=== PATIENT | female | born 1980 | race Caucasian/White ===

== ENCOUNTER → 2019-04-19 10:54 | Outpatient (BNVA) | payer MEDICAID, SELFPAY | PROVIDERS: Family Provider Family Medicine; PCP Family Medicine; Referring Provider Family Medicine; Visit Provider Specialist | DX: I99.8 Other disorder of circulatory system (principal); I65.09 Occlusion and stenosis of unspecified vertebral artery; Z86.73 Personal history of transient ischemic attack (TIA), and cerebral infarction without residual deficits | CPT/HCPCS: 99204 ==

== ENCOUNTER 2019-05-02 10:54 | Outpatient (CLI) | payer MEDICAID, SELFPAY ==
--- NOTE | 2019-05-02 11:00 | MR_ITS ---
WS: [id number] MRA ANGIOGRAPHY [place] HISTORY: TIA COMPARISON: CTA head and neck 02/28/2019 TECHNIQUE: 3-D MR angiography is performed of the [place]. All images are reviewed including source images. LEFT vertebral artery is dominant. RIGHT vertebral artery is patent. Basilar artery is normal. LEFT p osterior communicating artery arises directly from the basilar tip. Small caliber but patent RIGHT po sterior communicating artery. Posterior cerebral arteries are normal caliber. Intracranial portion of the internal carotid arteries are normal course and caliber. No significant a therosclerosis, stenosis or aneurysm identified. Middle and anterior cerebral arteries are both paten t with no significant disease. Anterior communicating artery is also normal. MR/MR angio head wo con [id number] IMPRESSION: Normal MRA [place].
--- NOTE | 2019-05-02 11:00 | MR_ITS ---
WS: [id number] MRI BRAIN WITH AND WITHOUT CONTRAST HISTORY: TIA COMPARISON: 02/28/2019 TECHNIQUE: Multiplanar imaging performed through the brain with Prohance 10 ml's IV. No acute infarcts. There is an area of blooming and susceptibility artifact in the posterior LEFT fro ntal lobe. This area corresponds to the increased density seen by CT since 2005. There has been some hemorrhage in this location. On the T1 sequence there is a minimal curvilinear area of increased sign al intensity. On the postcontrast images no significant amount of enhancement. The increased signal d oes appear to be present on the precontrast T1 sequence. No mass effect or acute edema. Ventricles and extra-axial spaces are normal. Clivus and pituitary gland are normal. Visualized posterior fossa and brainstem are also normal. No enhancing masses are identified. Increased signal in the posterior LEFT frontal lobe is not enhanc ement but with increased on the precontrast exam also. There is low signal surrounding this lesion wh ich measures about 6 mm. No venous angioma or other malformations. Dural venous sinuses are normal. Paranasal sinuses: Well aerated with no significant disease. Mastoid air cells: Normal. Calvarium and scalp: Normal. MR/MR head wo/w con [id number] IMPRESSION: 1. No acute infarcts. 2. Susceptibility artifact in the posterior LEFT frontal lobe without enhancem ent. This corresponds to the previously described hyperdense lesion seen by CT since 2005. Favor this is probably a vascular malformation such as a cavernous angioma or atypical AVM with prior hemorrhage. No acute blood products are iden tified. There could also be some mineralization/calcification present which can be seen with cavernous malformations.
== END 2019-05-02 10:55 | disposition home or self-care (01) ==
LOC: RADSHAW 10:57
PROVIDERS: Family Provider Family Medicine; PCP Family Medicine; Visit Provider Specialist
DX: G45.9 Transient cerebral ischemic attack, unspecified (principal)
CPT/HCPCS: 70544; 70553; A9579

== ENCOUNTER 2019-05-17 08:30 | Outpatient (CLI) | payer MEDICAID, SELFPAY ==
--- NOTE | 2019-05-17 08:37 | MR_ITS ---
WS: [id number] MRA CAROTID ARTERIES, noncontrast. HISTORY: TIA COMPARISON: None available. TECHNIQUE: MRA is performed with [id number] imaging. Unable to achieve IV access. No contrast giv en. Right: Majority the common carotid artery is widely patent. Bifurcation is intact. There is a focal n arrowing involving the proximal RIGHT ICA due to breathing or swallowing artifact. No stenosis was id entified in this location on the prior CTA. Left: Majority of the common carotid artery is widely patent. No stenosis. Vertebral Arteries: Vertebral arteries are both visualized from the level of the clavicles to the cox monett ll base. LEFT vertebral artery is dominant. No significant stenosis. MR/MR angio neck wo con [id number] IMPRESSION: 1. Limited evaluation without IV contrast. Unable to achieve IV access. 2. Widely patent bifurcations of the internal and external carotid arteries wi thout significant disease.
== END 2019-05-17 08:31 | disposition home or self-care (01) ==
LOC: RADSHAW 08:31
PROVIDERS: Family Provider Family Medicine; PCP Family Medicine; Visit Provider Specialist
DX: G45.9 Transient cerebral ischemic attack, unspecified (principal)
CPT/HCPCS: 70547

== ENCOUNTER → 2019-07-19 14:48 | Outpatient (BNVA) | payer MEDICAID, SELFPAY | PROVIDERS: Family Provider Family Medicine; PCP Family Medicine; Visit Provider Specialist | DX: I99.8 Other disorder of circulatory system (principal) | CPT/HCPCS: 99214 ==

== ENCOUNTER 2020-02-20 09:01 | Outpatient (CLI) | payer MEDICAID, SELFPAY ==
--- NOTE | 2020-02-20 | US_ITS ---
WS: [id number] ULTRASOUND THYROID TECHNIQUE: Ultrasound of the thyroid. CLINICAL INFORMATION: ACUTE THYROIDITIS COMPARISON: Ultrasound February 20, 2020 FINDINGS: Thyroid: Right thyroid lobe: 4.9 cm x 1.4 cm x 1.6 cm Hypoechoic nodule right thyroid measuring approximately 6.5 x 4.3 mm Left thyroid lobe: 6.6 cm x 3.5 cm x 2.6 cm. Enlargement of the left thyroid lobe with diffuse heterogeneous echotexture. Increased vascularity. M asslike enlargement measuring 5.9 x 2.6 x 3.3 cm. Largest heterogeneous hypoechoic nodules with perip heral vascularity measure 1.5-2.0 CM. Inferior thyroid masslike nodule measures 3.5 x 2.6 cm. Isthmus: 4.5 mm. Cervical lymphadenopathy: None. US/US thyroid [id number] IMPRESSION: 1. Diffuse marked enlargement of the left thyroid with masslike multinodular e nlargement with increased vascularity. Diffuse heterogeneous echotexture. Recom mend correlation for toxic multinodular goiter and recommend further evaluation with FNA to exclude neoplasm. 2. Small hypoechoic nodule right thyroid. *Comparison made to prior CTA head and neck 12 17,019. Masslike multinodular en largement left thyroid lobe has significantly progressed since the prior CTA he ad and neck.
--- NOTE | 2020-02-20 09:01 | US_ITS ---
WS: [id number] ULTRASOUND THYROID TECHNIQUE: Ultrasound of the thyroid. CLINICAL INFORMATION: ACUTE THYROIDITIS COMPARISON: Ultrasound February 20, 2020 FINDINGS: Thyroid: Right thyroid lobe: 4.9 cm x 1.4 cm x 1.6 cm Hypoechoic nodule right thyroid measuring approximately 6.5 x 4.3 mm Left thyroid lobe: 6.6 cm x 3.5 cm x 2.6 cm. Enlargement of the left thyroid lobe with diffuse heterogeneous echotexture. Increased vascularity. M asslike enlargement measuring 5.9 x 2.6 x 3.3 cm. Largest heterogeneous hypoechoic nodules with perip heral vascularity measure 1.5-2.0 CM. Inferior thyroid masslike nodule measures 3.5 x 2.6 cm. Isthmus: 4.5 mm. Cervical lymphadenopathy: None.
== END 2020-02-20 09:02 | disposition home or self-care (01) ==
PROVIDERS: PCP Family Medicine; Visit Provider Family Medicine
DX: E06.0 Acute thyroiditis (principal); E04.1 Nontoxic single thyroid nodule; E04.9 Nontoxic goiter, unspecified
CPT/HCPCS: 76536

== ENCOUNTER 2020-02-20 10:37 | Outpatient (CLI) | payer MEDICAID, SELFPAY ==
--- NOTE | 2020-02-20 10:44 | CT_ITS ---
WS: [id number] CT NECK TECHNIQUE: Contrast-enhanced CT of the neck with coronal and sagittal reformatted images. CLINICAL INFORMATION: ACUTE THYROIDITIS COMPARISON: None. DLP: [id number] scans at [facility] use at least one of these dose optimization techniques: automat ed exposure control; mA and/or kV adjustment per patient size (includes targeted exams where dose is matched to clinical indication); or iterative reconstruction. FINDINGS: Parotid glands are normal. Normal submandibular glands. No cervical lymphadenopathy. Tongue base is n ormal in appearance. Normal parapharyngeal fat. Multinodular diffuse enlargement of the left thyroid lobe with heterogeneous enhancement. Masslike enlargement of the left thyroid measures approximately 3.5 x 3.5 x 6.1 cm with left to right mass effect on the trachea at the thoracic inlet. No airway little rowing. Thyroid can be further evaluated with ultrasound. Normal right size thyroid lobe with a small low-attenuation nodule measuring 3.8 mm. No drainable fluid collection or abscess. Normal parapharyngeal fat. Tongue base is normal. No eviden ce of supraglottic or glottic mass. Subglottic airway is normal. Normal piriform sinuses. Lung apices are well aerated. Partially visualized intracranial contents are normal. Normal posterior fossa. Paranasal sinuses and mastoid air cells are well aerated. CT/CT neck w con* [id number] IMPRESSION: 1. Marked multinodular enlargement of the left thyroid lobe with diffuse heter ogeneous enhancement measuring 3.5 x 3.5 x 6.1 CM. Recommend correlation with t hyroid function studies. Findings can be seen with multinodular goiter. Recomme nd further evaluation with ultrasound. 2. Smaller right thyroid nodule measuring 3.8 mm. RIGHT thyroid lobe is normal in size. 3. Left to right mass effect on the trachea at the thoracic inlet. No airway n arrowing. 4. No cervical lymphadenopathy. Salivary glands are normal. 5. No other significant findings.
[2020-02-20] MEDS: iohexol 300 mg/mL 100 mL Btl IV (12:09)
== END 2020-02-20 10:38 | disposition home or self-care (01) ==
LOC: RADWPI 10:41
PROVIDERS: PCP Family Medicine; Visit Provider Family Medicine
DX: E06.0 Acute thyroiditis (principal); E04.2 Nontoxic multinodular goiter
CPT/HCPCS: 70491; Q9967

== ENCOUNTER 2020-02-27 10:41 | Outpatient (CLI) | payer MEDICAID, SELFPAY ==
--- NOTE | 2020-02-27 10:46 | FL_ITS ---
WS: [id number] FL barium swallow modified [id number] REASON FOR EXAM: Other dysphagia FLUOROSCOPY TIME: 1.6 minutes FINDINGS: The swallowing of multiple small varying consistency barium meals was fluoroscopically evaluated and recorded. Detailed report of the swallowing to be made by speech therapy. Fluoroscopically the swallowing mechanism appeared intact. The cervical and thoracic esophagus were unremarkable. FL/FL barium swallow modifd [id number] IMPRESSION: Detailed report of swallowing can be rendered by speech pathology. Fluoroscopically the cervical and thoracic esophagus were normal.
== END 2020-02-27 10:42 | disposition home or self-care (01) ==
LOC: RAD 10:42
PROVIDERS: PCP Family Medicine; Visit Provider Family Medicine
DX: E06.0 Acute thyroiditis (principal)
CPT/HCPCS: 74230; 92611

== ENCOUNTER 2020-03-25 09:47 | Outpatient (CLI) | payer MEDICAID, SELFPAY ==
[2020-03-25 11:27] LABS: Free T4 Free Thyroxine 1.02 ng/dL (0.82-1.77); Thyroid Stimulating Hormone 1.35 uIU/mL (0.27-4.20)
== END 2020-03-25 09:48 | disposition home or self-care (01) ==
LOC: LAB 09:52
PROVIDERS: PCP Family Medicine; Visit Provider Specialist
DX: E04.1 Nontoxic single thyroid nodule (principal)
CPT/HCPCS: 84439; 84443

== ENCOUNTER → 2020-04-05 16:24 | Outpatient (BNVA) | payer MEDICAID, SELFPAY | PROVIDERS: PCP Family Medicine; Visit Provider Specialist | DX: Z20.822 Contact with and (suspected) exposure to COVID-19 (principal); Z11.52 Encounter for screening for COVID-19 | CPT/HCPCS: 87635 ==

== ENCOUNTER 2020-04-09 11:25 | Observation (INO) | payer MEDICAID, SELFPAY ==
[2020-04-08 14:09] VITALS: BMI 28.3
[2020-04-09] VITALS (30 sets, daily range): BP systolic 113–171; BP diastolic 87–118; PULSE 71–128; RESP 12–19; TEMP 36.2–37; O2SAT 96–100
[2020-04-09 06:10] LABS: OR HCG Qualitative Urine Negative (Negative)
[2020-04-09] MEDS: sodium chloride 0.9% 1,000 ML 30 ML IV (06:37)
--- NOTE | 2020-04-09 06:43 | W.PM.OPSUD ---
Surgery/Procedure H&P Update DATE OF PROCEDURE: April 09, 2020 DATE H&P PERFORMED: 03/14/20 H&P UPDATE INFORMATION: I have reviewed H&P completed within last 30 days, I have examined patient prior to procedure and No changes to prior documentation PREOP DIAGNOSIS: Left thyroid nodule with suspicious FNA biopsy PLANNED PROCEDURE: Operation Date: 04/09/20 07:00 Proposed Procedures p Left Rob Thyroidectomy [id number](Not Applicable) - Abdias Enriquez MD
[2020-04-09] MEDS: midazolam 1 mg/mL INJ 2 mL 2 MG IVP (06:57)
--- NOTE | 2020-04-09 07:10 | ANES.PREANE2 ---
Pre-Anesthetic Assessment Pre-Anesthetic Assessment: Height/Weight: Height 1.5 m Weight 63.503 kg Temp Pulse Resp BP Pulse Ox 97.2 F L 75 18 143/105 97 04/09/20 06:10 04/09/20 06:10 04/09/20 06:10 04/09/20 06:10 04/09/20 06:10 Preop Diagnosis: Left thyroid nodule with suspicious FNA biopsy Proposed Procedure: Operation Date: 04/09/20 07:00 Proposed Procedures p Total Thyroidectomy 50269(Not Applicable) - Abdias Enriquez MD Last intake: Intake Last Liquid Date 04/08/20 Last Liquid Time 19:00 Last Solid Date 04/08/20 Last Solid Time 19:00 Social: Social History: No alcohol and No tobacco Exam: Pre-Anes Outpt Exam: alert, oriented x 3, clear to auscultation bilaterally and regular rate & rhythm Airway: Submandibular: WNL Cervical ROM: WNL MP: 2 Dentition: Full Neuropsych: Neuropsych: TIA Anesthetic Plan: ASA status: 2 Risk of > 500 ml blood loss (7ml/kg in children): No Meds/Allergies Current Medications: Current Medications Generic Name Dose Route Start Last Admin Trade Name Freq PRN Reason Stop Dose Admin Sodium Chloride 1,000 mls @ 30 ml s/hr 04/09/20 06:00 04/09/20 06:37 Sodium Chloride 0.9% IV 04/10/20 05:59 30 mls/hr .Q24H LUIS Administration Midazolam HCl 2 mg 04/09/20 05:56 04/09/20 06:57 Midazolam 1 Mg/M l Inj 2 Ml IVP 2 mg Q5M PRN Administration Preop Anxiety PFSH Anesthesia PFSH: Family History Other Hypertension Denies family history of Diabetes CAD (coronary artery disease) Stroke Social History Smoking and tobacco status: never smoked Alcohol intake: former Former alcohol use details: rare History of recent travel: No Data Anesthesia Other Labs: Laboratory Results - last 48 hr 04/09/20 06:09 Urine HCG, Qual Negative Cardiac Studies: No Data to Display
[2020-04-09] MEDS: neomycin-poly-bacitracin oint 28 gm 8 APPLIC TOPICAL (08:38)
[2020-04-09] MEDS: EPINEPHrine 1 mg/mL INJ 3 MG XX (08:48)
[2020-04-09] MEDS: ceFAZolin 1,000 mg SDV 1000 MG IRRIGATION (08:49)
[2020-04-09] MEDS: fluorescein 1 mg Strip XX ×2 (08:58→09:55)
[2020-04-09] MEDS: triamcinolone 40 mg/mL SDV IM (09:49)
[2020-04-09] MEDS: thrombin 5,000 unit SDV 5000 UNIT XX (09:56)
--- NOTE | 2020-04-09 10:52 | PM.OP ---
Operative Report Date of procedure: April 09, 2020 Pre-op Diagnosis: Left thyroid nodule with suspicious FNA biopsy Post-op diagnosis: same Post-op Findings: Large, friable left thyroid lobe Left recurrent laryngeal nerve intact to direct and vagal stimulation Procedure Done: Left hemithyroidectomy Specimens removed/disposition: Left thyroid lobe Pathology: Left thyroid lobe Surgeon: Abdias Enriquez [employer] Computer Consultant: [employer] Computer Consultant: Oseas Young Anesthesia: General Estimated blood loss (mL): 250 IV fluids (mL): 1,800 Urine output (mL): 250 Complications: None Findings: Large, friable left thyroid lobe Left recurrent laryngeal nerve intact to direct and vagal stiumulation Parathyroid gland x 2 identified O/W normal left thyroid bed Condition: stable Disposition: ICU Brief History: 29 yo wf with a h/o a left thyroid nodule with a suspicious FNA biopsy. The patient desires surgical therapy. Procedure: The patient was identified in the preoperative holding area and was taken to the operating was she was placed on the operating table in the supine position. Anesthesia was obtained with general endotracheal anesthesia after placing the Nirvana nerve monitoring electrode on the endotracheal tube and ensuring its proper position with the [place] scope. A horizontal incision was marked out on the anterior neck 2 fingerbreadths above the sternal notch and was injected with local anesthesia. The patient was then prepped and draped in the usual sterile fashion. The incision was then made with a 15 blade and was carried down through the subcutaneous tissues and platysma with electrocautery. The strap muscles were divided vertically in the midline and were retracted laterally to the left. At this point the patient was found to have an extremely large left thyroid lobe. We then began the process of sequentially dissecting the left lobe from the surrounding tissues using retraction and blunt dissection using the Nirvana nerve monitoring hemostat. The left lobe was found to be extremely friable and bloody and there was a lot of inflammatory tissue especially towards the posterior side of the left lobe. At this point the superior pole was addressed and was taken down sequentially with ligaclips securing each individual vessel superiorly. As dissection proceeded inferiorly while using blunt dissection and bipolar cautery the superior laryngeal and recurrent laryngeal nerves were identified electrically. The dissection proceeded in a sequential fashion, however the dissection was extremely difficult because of the extreme friability of the lobe. The lobe was rotated medially as the dissection proceeded and as each individual band was dissected free on a capsular plane and divided after confirming that there was no nerve in place with the nerve monitoring hemostat with bipolar cautery. The left lobe was then rotated medially and then removed with bipolar cautery preserving the recurrent laryngeal nerve and superior inferior parathyroid glands in place. The function of the reccurrent nerve was then reconfirmed with the nerve monitoring hemostat both to direct stimulation and to vagal stimulation which were both intact. At this point the left neck was irrigated with a copious amount of normal saline and the wound inspected for hemostasis which was achieved with bipolar cautery. At this point thrombin and Decadron soaked pledgets were placed over the left tracheoesophageal groove and a TLS drain was placed in the wound. At this point the wound was closed in layers with 4-0 Monocryl and 5-0 Monocryl as a subcuticular suture. Dermabond and Steri-Strips were used to close the skin. At this point the procedure was terminated and control of the patient was returned to anesthesia where she underwent an uneventful reversal of anesthesia and extubation and was taken to the recovery room in stable condition. There were no operative or anesthetic complications.
[2020-04-09] MEDS: famotidine 20 mg/2 mL INJ IVP ×2 (11:25→23:50)
[2020-04-09] MEDS: lactated ringers 1,000 ML 100 ML IV ×2 (11:31→19:44)
[2020-04-09] MEDS: morphine 4 mg/mL SDV 1 mL 2 MG IVP (11:33)
--- NOTE | 2020-04-09 13:28 | ANE.PACU2 ---
Inpatient post-anesthesia follow up: Airway intact: Yes Vital signs: Temperature 97.2 F Pulse Rate 89 Respiratory Rate 14 Blood Pressure 123/95 Pulse Oximetry 100 Oxygen Delivery Me thod Simple Mask Oxygen Flow Rate 3 Fraction of Inspir ed Oxygen Hydration adequate: Yes Nausea and vomiting: No Pain level: 1 Mental status: Baseline
[2020-04-09] MEDS: ondansetron 2 mg/ML SDV 2 mL 4 MG IVP ×2 (13:41→19:44)
[2020-04-09] MEDS: HYDROcodone-acetaminophen 5-325 mg Tablet 1 TAB PO ×2 (15:15→19:44)
--- NOTE | 2020-04-09 16:51 | PM.PN ---
Subjective Subjective: Interval history: The patient is a 39 yo wf who is night of surgery s/p left hemithyroidectomy. The patient is having some difficulty with urination, but is o/w without c/o. Her voice is unchanged from preop. Vitals/I&O/Wt Last Vital Signs Temp 97.2 F L 04/09/20 06:10 Pulse 91 04/09/20 14:00 Resp 14 04/09/20 12:30 BP 123/95 04/09/20 12:30 Pulse Ox 100 04/09/20 12:30 04/09/20 04/09/20 04/09/20 06:59 14:59 22:59 Intake Total 50 / 50 300 / 350 Output Total 250 / 250 Balance -200 / -200 300 / 100 Weight last 48 hrs Weight 63.503 kg Physical Exam Const: COMMON NORMALS: no acute distress and patient oriented x3 OTHER: The patient's voice is unchanged from preop. HENMT: COMMON NORMALS: normocephalic, atraumatic, external ears normal and Normal external nose present HEAD & SCALP: normocephalic and atraumatic FACE & SINUS: normal facial exam NOSE: Normal external nose present EXTERNAL EAR: Yes external ears normal Eye: COMMON NORMALS: Equal, round and reactive pupils present and conjunctivae normal GENERAL EYE: appearance normal, both eyes and all related structures CONJUNCTIVA: Yes conjunctivae normal PUPIL: Yes Equal, round and reactive pupils present Neck/C-Spine: COMMON NORMALS: no lymphadenopathy GENERAL: Yes other THYROID: other (The neck incision is intact, and without erythema or swelling.) Neuro: COMMON NORMALS: patient oriented x3 and CN's II-XII intact bilaterally Urinary Catheter Management^: Mcginnis: Cath Placed During This Visit: yes Urinary Catheter Date of Insertion: 04/09/20 Urinary Catheter Time of Insertion: 07:25 A&P Additional A&P Information Impression: 1) 39 yo wf who is night of surgery s/p left hemithyroidectomy doing wel 2) Difficulty with post op urination Plan: 1) Overnight observation of the patient's airway; continue closed suction drainage; regular diet; anticipate d/c in the am; Jerome and Morphine for pain 2) Nursing to I/O cath patient if she is unable to urinate.l Attestations Medical Necessity Statement*: The patient requires overnight observation of her airway. Coding Level of Care Code Acute Lather Apprentice for Brice Vargas
[2020-04-09] MEDS: docusate sodium 100 mg Capsule PO (17:38)
--- NOTE | 2020-04-09 18:56 | PC.NURSE ---
Shift summary: Pt post-op thyroidectomy. She has had nausea and vomiting today. She has received morphine once and hydrocodone once for pain. She is now on room air. No respiratory distress noted. Pt able to swallow. Pt tolerating regular diet. Minimal drainage in drain noted. VSS. Pt unable to void as of yet. 224 ml , bladder scanned. Dr Enriquez notified,orders received.
[2020-04-10] VITALS (11 sets, daily range): BP systolic 110–143; BP diastolic 80–92; PULSE 76–116; RESP 12–18; TEMP 36.6; O2SAT 95–100
[2020-04-10] MEDS: HYDROcodone-acetaminophen 5-325 mg Tablet 1 TAB PO ×2 (00:53→07:31)
[2020-04-10] MEDS: ondansetron 2 mg/ML SDV 2 mL 4 MG IVP ×2 (00:56→07:35)
--- NOTE | 2020-04-10 04:32 | PM.PN ---
Subjective Subjective: Interval history: 39 yo wf who is POD #1 s/p left hemithyroidectomy who is doing well. She is able to take po well, is urinating well, and wants to go home. Vitals/I&O/Wt Last Vital Signs Temp 98.6 F 04/09/20 20:00 Pulse 86 04/10/20 00:36 Resp 15 04/10/20 00:36 BP 143/87 04/10/20 00:36 Pulse Ox 98 04/10/20 00:36 04/09/20 04/09/20 04/10/20 14:59 22:59 06:59 Intake Total 1850 / 1850 1521.667 / 3371.667 Output Total 500 / 500 318 / 818 Balance 1350 / 1350 1203.667 / 2553.667 Weight last 48 hrs Weight 63.503 kg Physical Exam Const: COMMON NORMALS: no acute distress and patient oriented x3 GENERAL APPEARANCE: cooperative and well developed HENMT: COMMON NORMALS: normocephalic, hearing grossly normal bilaterally, external ears normal and Normal external nose present HEAD & SCALP: normocephalic FACE & SINUS: normal facial exam NOSE: Normal external nose present EXTERNAL EAR: Yes external ears normal Eye: COMMON NORMALS: EOMs intact bilaterally, conjunctivae normal and no scleral icterus CONJUNCTIVA: Yes conjunctivae normal Neck/C-Spine: COMMON NORMALS: no lymphadenopathy and supple THYROID: other (The thyroidectomy incision is intact, without swelling or erythema.) Resp: COMMON NORMALS: normal respiratory effort and clear to auscultation bilaterally AUSCULTATION: clear to auscultation bilaterally Cardio: COMMON NORMALS: regular rate, regular rhythm, No murmurs present (Cardio) and No rub (Cardio) RATE: regular rate RHYTHM: regular rhythm GI: COMMON NORMALS: Normal to inspection, nondistended, normoactive bowel sounds present Extremity: COMMON NORMALS: normal to inspection and full ROM Neuro: SHIRA COMA SCALE: other (The patient's voice is unchanged from preop.) COMMON NORMALS: patient oriented x3 and CN's II-XII intact bilaterally Psych: COMMON NORMALS: mental status grossly normal and cooperative Skin: COMMON NORMALS: no rashes or lesions noted GENERAL SKIN EXAM: no rashes or lesions noted Urinary Catheter Management^: Mcginnis: Cath Placed During This Visit: yes Urinary Catheter Date of Insertion: 04/09/20 Urinary Catheter Time of Insertion: 07:25 A&P Additional A&P Information Impression: 1) POD #1 s/p left hemithyroidectomy doing well 2) Urinary retention - now resolved Plan: 1) D/C to home; Continue TLS drainage - patient instructed in drain use; [place] () tabs: take 1-2 tabs po Q5 hours prn pain, #25, NR; F/U in Dr. Enriquez's office on 04/12/20 @ 13:00 hours; Notify Dr. Enriquez for any problems 2) Observation Attestations Medical Necessity Statement*: The patient required overnight observation of her airway Coding Level of Care Code Acute Instrumentation Controls Engineer for Brice Vargas
--- NOTE | 2020-04-10 09:48 | PC.CHAP ---
Pastoral Care Encounter/Spiritual Assessment Type of Contact [] Declined tourist guide visit [] Patient/Family/Request visit [] Outpatient visit [] Follow-up visit [] Physician referral [] Code/Alert [x] Routine visit [] Staff referral [] Actively dying [] Patient sleeping [] Family support [] [] Out of room [] Palliative care [] [] Receiving care in room [] Pre-surgical visit [] Trauma [] Long length of stay [x] ICU visit [] Other: Relational/Emotional Strength [] Patient feels connected with others/family/visitors/staff [] Distress [] Loneliness/isolation [] Abandonment Spirituality of Patient [] Person of Xin [] Attends Anabaptism of their Xin [] Believes in Prayer [] Reads Bible or Yazdanism materials [] There are Spiritual issues to be addressed Gear Lapper Interventions [x] Prayer [] Active listening [] Non-anxious presence [] Spiritual/emotional support [] Crisis/trauma care [] Spiritual counseling [] Bereavement support [] Provided bereavement packet [] Provided Bible/devotional materials [] Provided toy/stuffed animal, coloring book to patient or family member [] Provided Communion [] Anointing/[place] [] Salvation [x] Completed spiritual assessment [] Other: Impact on Illness or Injury [] Angry [] Fearful [] Anxious [] Often cries [] Exhaustion [] Unable to work [] Unable to attend adventism [] Unable to walk/stand [] Unable to read [] Unable to drive [] Unable to eat/drink [] Unable to sleep [] Unable to be with family [] Patient intubated [] Other: Summary patient feeling stronger.. tourist guide stood at door way and prayed.. assured patient if need be chaplains availalbe 05/10 Time spent with patient 10 min
[2020-04-10] MEDS: docusate sodium 100 mg Capsule PO (09:50)
--- NOTE | 2020-04-10 10:16 | PC.NURSE ---
IV removed. Catheter intact. Pressure applied. Pt tolerated well. Site unremarkable. Pt requested Zofran RX to take home. States [place] provides pain management but causes nausea. States Zofran helped. Dr Enriquez notified. Zofran 8mg TID PRN #20 1 refill order received. [facility] Discharge instructions given. Denies questions, pain or needs at this time. Pain controlled. 10 tubes sent with pt for drain site. Appt with Dr Enriquez Wednesday morning. Dressed and awaiting transportation.
== END 2020-04-10 10:25 | disposition home or self-care (01) ==
LOC: ICU 11:26
PROVIDERS: Anesthesiology; Admitting Provider Specialist; PCP Family Medicine; Visit Provider Specialist
PROC: (CPT 60220; principal; 2020-04-09 07:00)
DX: E04.9 Nontoxic goiter, unspecified (principal)
CPT/HCPCS: 60220; 12345; 51702; 51798; 81025; 84703; 88307; 96365; 96374; G0378; J0171; J0330; J0690; J1100; J2250; J2270; J2370; J2405; J2704; J3010; J3301; J3490; J7030

== ENCOUNTER 2020-12-28 10:08 | Emergency (ER) | payer MEDICAID, SELFPAY ==
[2020-12-28 11:00] VITALS: BP 127/90; PULSE 67; RESP 14; TEMP 36.3; O2SAT 100; BMI 27.3
[2020-12-28] MEDS: ketorolac 60 mg/2 mL INJ IM (11:16)
[2020-12-28] MEDS: orphenadrine 30 mg/mL Inj 2 mL 60 MG IM (11:17)
--- NOTE | 2020-12-28 11:25 | XRR_ITS ---
PROCEDURE INFORMATION: Exam: XR Sacrum and Coccyx, 2 or More Views Exam date and time: 12/28/2020 11:25 AM Age: 40 years old Clinical indication: Injury or trauma; Fall; Blunt trauma (contusions or hematomas); Additional info: Pain TECHNIQUE: Imaging protocol: XR of the sacrum and coccyx, 2 or more views. COMPARISON: CR Abdomen Series Acute [id number] 01/30/2014 7:11 PM FINDINGS: Bones/joints: There is no acute fracture in the sacrum. No sacroiliitis. On the lateral view, there is an abrupt angulation of the distal sacrum/coccyx through a synchondrosis. The distal coccygeal fragment is displaced anteriorly. There is also very subtle irregularity of the sacrum ossicle just superior to this with bony sclerosis that may reflect an old fracture. No acute fracture is identified. Soft tissues: Normal. XR/XR sacrum coccyx min 2V [id number] IMPRESSION: 1. Anterior subluxation/displacement of the sacrococcygeal junction concerning for acute injury through the synchondrosis. Note is made that some patients can have a angulated junction but this is much more prominent the most patients. 2. No acute fracture. The deformity of the adjacent distal sacral segment is favored to be old given the adjacent bony sclerosis. Radiation Dose CTDIVOL = (mGy): DLP = (mGy-cm)
--- NOTE | 2020-12-28 11:25 | W.ED.BACK ---
HPI - Back Pain/Injury General: Chief Complaint: Back Pain/Injury Stated Complaint: Back Pain Due to Fall Time Seen by Provider: 12/28/20 10:58 History of Present Illness: HPI Narrative: 40-year-old female presents to the emergency room with complaint of back pain after falling on her buttocks jarring her low back. She has been up and ambulatory since then. Most of her pain is in the lumbar spine region. She fell from a standing height. Most of her pain is in the sacral region. MD elicited complaint: back pain Pertinent past history: recent trauma Onset (ago): day(s) Timing: constant Severity: moderate Quality: sharp Exacerbating factors: none Relieving factors: none Associated symptoms: Deny abdominal pain, arthralgias, chills, change in bowel habits, difficulty walking, dysuria, fatigue, fecal incontinence, fever(s), hematuria, myalgias, nausea, numbness, syncope, tingling/numbness/burning, urinary frequency, urinary urgency, vomiting or weakness Treatments prior to arrival: NSAIDS and acetaminophen Review of Systems Const: Denies: fever(s), chills or fatigue ENMT: Denies: throat pain, ear or mastoid pain, nasal discharge or nasal congestion Card: Denies: syncope Resp: Denies: dyspnea, productive cough or non-productive cough GI: Denies: abdominal pain, nausea, vomiting, fecal incontinence or change in bowel habits : Denies: dysuria, urinary urgency or hematuria Skin/Breast: Denies: rash or pruritus Neuro: Denies: difficulty walking PFSH ED PFSH: Family History Other Hypertension Denies family history of Diabetes CAD (coronary artery disease) Stroke Social History Smoking and tobacco status: never smoked Alcohol intake: former Former alcohol use details: rare History of recent travel: No Female Reproductive History: Date of last menstrual period: 12/28/20 Physical Exam Const: COMMON NORMALS: no acute distress GENERAL APPEARANCE: cooperative and comfortable ORIENTATION/CONSCIOUSNESS: Yes awake, Yes oriented to person, Yes oriented to place and Yes oriented to time HENMT: COMMON NORMALS: normocephalic, atraumatic and hearing grossly normal bilaterally HEAD & SCALP: normocephalic and atraumatic Neck/C-Spine: COMMON NORMALS: no JVD Lymph: LYMPHATIC: no lymphadenopathy noted and no lymphedema noted Resp: COMMON NORMALS: normal respiratory effort, No retractions, No use of accessory muscles and clear to auscultation bilaterally AUSCULTATION: clear to auscultation bilaterally Cardio: COMMON NORMALS: no JVD, regular rate, regular rhythm and No murmurs present (Cardio) RATE: regular rate RHYTHM: regular rhythm GI: COMMON NORMALS: Soft to palpation and No hepatosplenomegaly present AUSCULTATION: Yes normoactive bowel sounds PALPATION: Yes Soft to palpation, No Tenderness to palpation present (GI), No Guarding due to palpation present (GI) and Yes No hepatosplenomegaly present Back/Pelvis: OTHER: Mild discomfort over the distal coccyx no crepitus. Extremity: COMMON NORMALS: normal to inspection, capillary refill normal, no clubbing, cyanosis or edema, no calf tenderness and no pedal edema Neuro: SENSORIUM/ORIENTATION: Yes oriented to person, Yes oriented to place and Yes oriented to time Skin: COMMON NORMALS: no rashes or lesions noted GENERAL SKIN EXAM: no rashes or lesions noted Course Vital Signs: Vital signs: Vital Signs Temperature 97.4 F L 12/28/20 11:50 Pulse Rate 67 12/28/20 11:00 Respiratory Rate 14 12/28/20 11:50 Blood Pressure 127/90 12/28/20 11:00 Pulse Oximetry 100 12/28/20 11:00 MDM - Back Pain/Injury MDM Narrative: Medical decision making narrative: Discharge home with tizanidine and diclofenac. She has previous prescription for hydrocodone. Is questionable fracture of the distal coccyx however I believe its old radiology reading is still pending if symptoms do not improve recheck. Discharge Plan Discharge Patient Disposition: Home Clinical Impression: Fall, Back pain Condition: Stable Prescriptions: New tizanidine 4 mg capsule 4 mg PO Q6H PRN (Reason: muscle spasticity) Qty: 20 RF: 0 diclofenac sodium 75 mg tablet,delayed release (DR/EC) 75 mg PO Q12H PRN (Reason: pain) Qty: 20 RF: 0 No Action Brumley 5-325 mg tablet 1 tab PO Q6H PRN (Reason: pain) Qty: 25 RF: 0 Discharge Orders: Discharge ED (Routine); Ordered 10/16/21 Ordered By: Jasper Anderson Referrals: Abdias Raymundo MD [Primary Care Provider] - Discharge Diet: Usual diet Discharge Activity: Increase activity as tolerated Patient Instructions: Opioid Safety Activity Restrictions/Additional Instructions: If not improving recheck. Coding Level of Care Code ED Instrument Lens Grinder Apprentice for Brice Vargas
[2020-12-28 11:50] VITALS: RESP 14; TEMP 36.3
[2020-12-28 12:45] VITALS: BP 122/90; PULSE 63; RESP 18; O2SAT 100
== END 2020-12-28 12:44 | disposition home or self-care (01) ==
PROVIDERS: Emergency Provider Family Medicine; PCP Family Medicine
DX: M54.9 Dorsalgia, unspecified (principal)
CPT/HCPCS: 72220; 96372; 99283; J1885; J2360

== ENCOUNTER → 2021-09-24 07:48 | Outpatient (BNVA) | payer MEDICAID, SELFPAY | PROVIDERS: PCP Family Medicine; Referring Provider Nurse Practitioner; Visit Provider Podiatrist Foot & Ankle Surgery | DX: L60.8 Other nail disorders (principal); L60.3 Nail dystrophy | CPT/HCPCS: 99203 ==

== ENCOUNTER 2021-09-25 11:00 | Emergency (ER) | payer MEDICAID, SELFPAY ==
--- NOTE | 2021-09-25 11:01 | XRR_ITS ---
PROCEDURE INFORMATION: Exam: XR Left Ankle Exam date and time: 09/25/2021 11:12 AM Age: 40 years old Clinical indication: Injury or trauma; Fall; Blunt trauma; Ankle; Left TECHNIQUE: Imaging protocol: Radiologic exam of the Left ankle. Views: 3 or more views. COMPARISON: [facility] Extremity/Soft Tissue 02/25/2015 1:14 PM FINDINGS: Bones/joints: Medial and lateral malleoli are normal. Ankle mortise is symmetrical. No fracture. Hindfoot is unremarkable. Tibiotalar joint and subtalar joint normal. Soft tissues: Normal. XR/XR ankle LT min 3V* [id number] IMPRESSION: Normal ankle.
[2021-09-25 11:24] VITALS: BP 118/83; PULSE 74; RESP 16; TEMP 36.9; O2SAT 100
--- NOTE | 2021-09-25 11:33 | ED_ITS ---
HPI - Extremity Injury (Lower) General: Chief Complaint: Extremity Injury, Lower Stated Complaint: Left ankle injury Time Seen by Provider: 09/25/21 11:01 Source: patient Mode of arrival: ambulatory Limitations: no limitations History of Present Illness: Patient is a 40-year-old female who presents to ED today for evaluation of a left ankle injury. Patient states earlier today she was jumping down off of a surface when she twisted the ankle. She is complaining of pain to the lateral aspect of the joint. She has no other injuries or complaints at this time. Patient states she is ambulatory on the extremity with a limp. complaint: ankle injury Onset (ago): hour(s) Injury: Left: ankle Place: home Severity: moderate Relieving factors: immobilization Exacerbating factors: weight bearing, movement and palpation Context: other (twisted) Associated symptoms: Reports no associated symptoms Other symptoms: none Review of Systems Musc: Reports: joint pain and joint swelling; Denies: extremity pain or extremity swelling Neuro: Denies: numbness in extremities, weakness in extremities or sensory changes PFS ED PFSH: Medical History Bladder wall thickening Family History Mother Gastric ulcer Father Hypertension Social History Smoking and tobacco status: never smoked Alcohol intake: former Former alcohol use details: rare Lives independently: Yes Household members: significant other Marital status: Life Partner Number of children: 1 History of recent travel: No Female Reproductive History: Date of last menstrual period: 12/28/20 Physical Exam Const: COMMON NORMALS: no acute distress, average body habitus, patient o riented x3, no limitations, healthy appearing, alert and well nourished Extremity: COMMON NORMALS: capillary refill normal GENERAL: Yes normal exam except as noted LEFT LOWER EXTREMITY: Yes ankle joint (TTP and swelling localized to lateral malleolus) Left ankle: Yes neurovascular exam (normal) Neuro: COMMON NORMALS: patient oriented x3, moves all extremities, no focal motor deficits and no sensory deficits noted SENSORIUM/ORIENTATION: Yes alert Course Vital Signs: Vital signs: Vital Signs Temperature 98.5 F 09/25/21 11:24 Pulse Rate 74 09/25/21 11:24 Respiratory Rate 16 09/25/21 11:24 Blood Pressure 118/83 09/25/21 11:24 Pulse Oximetry 100 09/25/21 11:24 MDM - Extremity Injury (Lower) Medical Decision Making XR negative. Discussed RICE therapy at home. Follow up with PCP in 2 weeks if ankle does not seem to be improving. Discharge Plan Discharge Patient Disposition: Home Clinical Impression: Left ankle sprain Qualifiers: Encounter type: initial encounter Involved ligament of ankle: unspecified ligament Qualified Code(s): S93.402A - Sprain of unspecified ligament of left ankle, initial encounter Condition: Stable Prescriptions: No Action oxybutynin chloride 5 mg tablet 5 mg PO BID 0RF tizanidine 4 mg capsule 4 mg PO Q6H PRN (Reason: muscle spasticity) Qty: 20 0RF Rx Instructions: do not exceed 3 doses per 24 hrs diclofenac sodium 75 mg tablet,delayed release (DR/EC) 75 mg PO Q12H PRN (Reason: pain) Qty: 20 0RF Discharge Orders: Discharge ED (Routine); Ordered 09/25/21 Ordered By: Estela Burgess Referrals: Abdias Raymundo MD [Primary Care Provider] - Patient Instructions: Ankle Sprain (DC), RICE Therapy Coding Level of Care Code ED Manager Heavy Duty for Brice Vargas
== END 2021-09-25 12:06 | disposition home or self-care (01) ==
PROVIDERS: Emergency Provider Physician Assistant; PCP Family Medicine
DX: S93.402A Sprain of unspecified ligament of left ankle, initial encounter (principal); X50.1XXA Overexertion from prolonged static or awkward postures, initial encounter
CPT/HCPCS: 73610; 99283

== ENCOUNTER 2021-09-28 20:57 | Emergency (ER) | payer MEDICAID, SELFPAY ==
[2021-09-28 21:21] VITALS: BP 148/91; PULSE 69; RESP 18; TEMP 36.6; O2SAT 99; BMI 26.9
--- NOTE | 2021-09-28 22:41 | XRR_ITS ---
PROCEDURE INFORMATION: Exam: XR Right Hip Exam date and time: 09/28/2021 10:57 PM Age: 40 years old Clinical indication: Hip pain; Right hip; Additional info: Fall with right hip pain TECHNIQUE: Imaging protocol: Radiologic exam of the Right hip. Views: 1 view hip with pelvis when performed. COMPARISON: CR XR sacrum coccyx min 2V [id number] 12/28/2020 12:06 PM FINDINGS: Bones/joints: Unremarkable. No acute fracture. Soft tissues: Unremarkable. XR/XR hip RT 2-3V wo/w pel* [id number] IMPRESSION: No acute findings.
--- NOTE | 2021-09-28 22:50 | W.ED.FALL ---
HPI - Fall General: Chief Complaint: Fall Stated Complaint: Hip Pain Time Seen by Provider: 09/28/21 22:40 History of Present Illness: Patient is a 40-year-old female comes to the ED with right hip pain. Patient was seen here in the ED on September 25 with left ankle pain after fall and discharged home with left ankle sprain. Today she started feeling some right hip pain as well and says it is tender to the touch. She reports a little bit of swelling around her right hip. Patient says when she fell a couple days ago her right hip did hit the ground but was not having any right hip pain at that time when she came to the ED. She rates her hip pain a 5 out of 10 took some ibuprofen a couple hours ago to help with pain. Patient is able to weight-bear but endorses a little bit of right hip pain with weightbearing. Denies any reinjury or trauma to cause hip pain. Associated symptoms-after fall: Denies abdominal pain, chest pain, headache(s), hematuria or neck pain Review of Systems Const: Denies: fever(s), chills or fatigue Eyes: Denies: change in vision or eye discomfort ENMT: Denies: throat pain, odynophagia, nasal discharge or nasal congestion Card: Denies: chest pain, palpitations, edema, swelling of feet/ankles, dyspnea on exertion or orthopnea Resp: Denies: dyspnea, productive cough or non-productive cough GI: Denies: abdominal pain, nausea, vomiting, diarrhea, constipation or hematochezia : Denies: flank pain, dysuria or hematuria Musc: Reports: extremity pain (Right hip); Denies: neck pain, back pain or extremity swelling Skin/Breast: Denies: rash or new lesions Neuro: Denies: headache(s), numbness in extremities or weakness in extremities PFSH ED PFSH: Medical History Bladder wall thickening Family History Mother Gastric ulcer Father Hypertension Social History Smoking and tobacco status: never smoked Alcohol intake: former Former alcohol use details: rare Lives independently: Yes Household members: significant other Marital status: Life Partner Number of children: 1 History of recent travel: No Female Reproductive History: Date of last menstrual period: 12/28/20 Physical Exam Const: COMMON NORMALS: no acute distress, patient oriented x3 and alert GENERAL APPEARANCE: cooperative and comfortable HENMT: COMMON NORMALS: normocephalic HEAD & SCALP: normocephalic MOUTH: Normal oral and palatal mucosa present THROAT: posterior oropharynx normal and uvula midline Neck/C-Spine: COMMON NORMALS: supple GENERAL: Yes normal visual inspection Resp: COMMON NORMALS: normal respiratory effort, No retractions, No use of accessory muscles and clear to auscultation bilaterally AUSCULTATION: clear to auscultation bilaterally Cardio: COMMON NORMALS: regular rate, regular rhythm, S1 normal heart sound present, S2 normal heart sound present, No gallops present (Cardio), No clicks present (Cardio), No murmurs present (Cardio) and Peripheral pulses 2+ throughout RATE: regular rate RHYTHM: regular rhythm HEART SOUNDS: S1 normal heart sound present and S2 normal heart sound present PERIPHERAL PULSES: Peripheral pulses 2+ throughout GI: COMMON NORMALS: Normal to inspection, nondistended, normoactive bowel sounds present, Soft to palpation, non-tender and no masses PALPATION: Yes Soft to palpation : COMMON NORMALS: Yes no CVA tenderness BLADDER/KIDNEY EXAM: Yes no CVA tenderness Back/Pelvis: COMMON NORMALS: no CVA tenderness Extremity: COMMON NORMALS: normal to inspection and full ROM NARRATIVE EXTREMITY EXAM: Patient is weightbearing without any difficulties or limping. Neuro: COMMON NORMALS: patient oriented x3 and moves all extremities SENSORIUM/ORIENTATION: Yes alert Skin: GENERAL SKIN EXAM: dry skin Course Vital Signs: Vital signs: Vital Signs Temperature 97.8 F 09/28/21 21:21 Pulse Rate 69 09/28/21 21:21 Respiratory Rate 18 09/28/21 21:21 Blood Pressure 148/91 09/28/21 21:21 Pulse Oximetry 99 09/28/21 21:21 MDM - Fall Medical Decision Making Patient is a 40-year-old female comes to the ED with right hip pain. Patient was seen here in the ED on September 25 with left ankle pain after fall and discharged home with left ankle sprain. Today she started feeling some right hip pain as well and says it is tender to the touch. Vitals are stable. Exam is benign and patient is able to weight-bear on right hip without any difficulty. X-ray of right hip showed no acute findings. Patient diagnosed with contusion of right hip and was discharged home. Told to follow-up with her PCP in the next week for reevaluation. Return to ED precautions given. Patient understood and agreed with plan. Lab Data Radiology Impressions Hip/Pelvis X-Ray 09/28/21 22:41 IMPRESSION: No acute findings. Discharge Plan Discharge Patient Disposition: Home Clinical Impression: Contusion of hip, right Qualifiers: Encounter type: initial encounter Qualified Code(s): S70.01XA - Contusion of right hip, initial encounter Condition: Stable Prescriptions: No Action oxybutynin chloride 5 mg tablet 5 mg PO BID 0RF tizanidine 4 mg capsule 4 mg PO Q6H PRN (Reason: muscle spasticity) Qty: 20 0RF Rx Instructions: do not exceed 3 doses per 24 hrs diclofenac sodium 75 mg tablet,delayed release (DR/EC) 75 mg PO Q12H PRN (Reason: pain) Qty: 20 0RF Discharge Orders: Discharge ED (Routine); Ordered 09/28/21 Ordered By: Shaquille English Referrals: Abdias Raymundo MD [Primary Care Provider] - Discharge Diet: Regular Discharge Activity: Increase activity as tolerated Activity Restrictions/Additional Instructions: Follow-up with medical provider as directed in the next 7 to 10 days for reevaluation. Take [id number] ibuprofen or Tylenol to help with pain. Return to the ER or your medical provider if condition worsens. Please read and understand discharge instructions. Thank you for choosing [facility] for your healthcare needs today. Please realize this is an emergency room and that we are providing you with a medical screening exam and this may not be complete and all inclusive of all the testing and or work up that you may need to determine your ailment or severity of your illness. It is very important that you follow up as instructed or that you return to the Emergency Department should you have concerns or if your condition changes or worsens in any way. Coding Level of Care Code ED Plastic Surgery Technician for Brice Vargas Exam Comprehensive
== END 2021-09-28 23:42 | disposition home or self-care (01) ==
PROVIDERS: Emergency Provider Physician Assistant; PCP Family Medicine
DX: S70.01XA Contusion of right hip, initial encounter (principal); W19.XXXA Unspecified fall, initial encounter
CPT/HCPCS: 73502; 99283

== ENCOUNTER → 2021-10-21 08:24 | Outpatient (BNVA) | payer MEDICAID, SELFPAY | PROVIDERS: PCP Family Medicine; Visit Provider Podiatrist Foot & Ankle Surgery | DX: B35.1 Tinea unguium (principal); B35.3 Tinea pedis; L60.8 Other nail disorders | CPT/HCPCS: 99213 ==

== ENCOUNTER 2022-01-07 09:12 | Emergency (ER) | payer MEDICAID, SELFPAY ==
[2022-01-07 09:47] VITALS: BP 142/98; PULSE 138; RESP 14; TEMP 38.4; O2SAT 100; BMI 26.2
--- NOTE | 2022-01-07 11:21 | ED_ITS ---
HPI - General Adult General: Chief complaint: General Medical Stated complaint: Sore throat Time Seen by Provider: 01/07/22 11:15 History of Present Illness: Ms. Johnson is a 41-year-old lady with history of solitary kidney, TIA, vertebral artery stenosis presenting to the emergency [facility] due to generalized illness. She reports onset of symptoms last night with sore throat and generalized malaise. Subjective fevers chills. Mild associated URI symptoms. She also endorses low back pain though denies any other GI symptoms. Intensity symptoms is moderate to severe. Course is worsened. Does have sick contacts. No other specific changes in health, exacerbating, or alleviating factors identified. Onset (ago): day(s) Location: back Severity: moderate Quality: aching Relieving factors: none Exacerbating factors: none Associated symptoms: Reports fevers/chills, malaise and nausea Review of Systems General: Reports: 10 or more systems reviewed and unremarkable except in HPI and below Const: Reports: malaise GI: Reports: nausea PFSH ED PFSH: Medical History Bladder wall thickening Family History Mother Gastric ulcer Father Hypertension Social History Smoking and tobacco status: never smoked Alcohol intake: former Former alcohol use details: rare Lives independently: Yes Household members: significant other Marital status: Life Partner Number of children: 1 History of recent travel: No Female Reproductive History: Date of last menstrual period: 12/28/20 Physical Exam Const: COMMON NORMALS: alert GENERAL APPEARANCE: cooperative, well developed and ill appearing (Mildly) HENMT: COMMON NORMALS: normocephalic and atraumatic HEAD & SCALP: norm ocephalic and atraumatic OTHER: Posterior pharyngeal erythema without other abnormality identified. Eye: COMMON NORMALS: conjunctivae normal CONJUNCTIVA: Yes conjunctivae normal SCLERA: sclerae normal Neck/C-Spine: COMMON NORMALS: supple GENERAL: Yes trachea midline Resp: COMMON NORMALS: clear to auscultation bilaterally EFFORT & INSPECTION: Yes able to speak in complete sentences AUSCULTATION: clear to auscultation bilaterally Cardio: COMMON NORMALS: regular rate and regular rhythm RATE: regular rate RHYTHM: regular rhythm GI: COMMON NORMALS: Soft to palpation PALPATION: Yes Soft to palpation and No Tenderness to palpation present (GI) : OTHER: Right CVA tenderness Extremity: GENERAL: Yes normal exam except as noted and No edema Neuro: COMMON NORMALS: moves all extremities SENSORIUM/ORIENTATION: Yes alert and No Orientation impaired Psych: COMMON NORMALS: mental status grossly normal and Normal thought process present THOUGHT PROCESS: Normal thought process present Course Vital Signs: Vital signs: Vital Signs Temperature 101.1 F H 01/07/22 09:47 Pulse Rate 111 H 01/07/22 16:13 Respiratory Rate 16 01/07/22 16:13 Blood Pressure 129/102 01/07/22 16:13 Pulse Oximetry 99 01/07/22 16:13 Oxygen Delivery Me thod 01/07/22 15:12 [facility] - General Adult Medical Decision Making 41-year-old female presenting with generalized illness. Initial clinically mildly ill-appearing with tachycardia and fever. Laboratory studies notable for leukocytosis and hemoconcentration. Metabolic panel with evidence of dehydration, creatinine appears similar to baseline. Urinalysis has 3+ blood on dipstick though not on microscopy, 1+ bacteria noted on microscopy. Lactic acid is normal. Given laboratory findings and overall clinical appearance I do believe that imaging is appropriate. Chest x-ray with no lobar consolidation or pneumothorax. CT renal stone protocol without evidence of nephrolithiasis or ureterolithiasis. Upon reassessment patient feels significantly improved and clinically appears better after fluids. Given urinalysis findings and reported clinical symptoms I will treat for urinary tract infection. Dose of Rocephin ordered here. The results of ED evaluation were discussed with the patient including possible disposition options. I offered the patient admission given SIRS criteria without clear source however patient feels comfortable with outpatient management with strict return precautions and plan to treat with antibiotics. I discussed prescriptions and/or symptomatic cares (if applicable) including appropriate and responsible use, followup plan, and return precautions. The patient verbalized understanding and felt safe for discharge. Medical Records I reviewed the patient's medical records. Lab Data I reviewed the patient's lab results. : 01/07/22 11:40 01/07/22 11:40 Radiology Impressions Chest X-Ray 01/07/22 12:36 IMPRESSION: Unremarkable chest radiograph. Abdomen/Pelvis CT 01/07/22 12:46 IMPRESSION: 1. Very minimal prominence of the RIGHT ureter. No ureteral calcification identified. The distal ureter is obscured by RIGHT adnexal structures. 2. Abnormal contour of the RIGHT kidney. There is cortical thinning and possible cyst or complex cyst in the lower pole. Ultrasound evaluation may provide additional information. 3. Severe atrophy of the LEFT kidney. 4. Small amount of free fluid in the cul-de-sac. Fullness in the RIGHT adnexa. This can be further evaluated by transvaginal ultrasound is thought necessary. 5. Normal appendix. Notified Chris Anderson MD at 01/07/2022 2:45 PM. Laboratory Results WBC 16.0 10^3/uL (4.0-10.0) H 01/07/22 11:40 RBC 5.65 10^6/uL (4.1-5.3) H 01/07/22 11:40 Hgb 16.2 g/dL (11.5-15.3) H 01/07/22 11:40 Hct 51.4 % (37.0-47.0) H 01/07/22 11:40 MCV 91.0 fl (81-99) 01/07/22 11:40 MCH 28.7 pg (28.0-34.0) 01/07/22 11:40 MCHC 31.5 g/dL (30.0-36.0) 01/07/22 11:40 RDW 14.5 % (12.1-15.1) 01/07/22 11:40 Plt Count 231 10^3/cmm (130-400) 01/07/22 11:40 MPV 10.0 fL (7.4-10.4) 01/07/22 11:40 Neut % (Auto) 90.9 % 01/07/22 11:40 Lymph % (Auto) 4.1 % 01/07/22 11:40 [place] % (Auto) 3.6 % 01/07/22 11:40 Eos % (Auto) 0.2 % 01/07/22 11:40 Baso % (Auto) 0.5 % 01/07/22 11:40 Neut # (Auto) 14.55 10^3/uL (1.8-7.7) H 01/07/22 11:40 Lymph # (Auto) 0.7 10^3/uL (0.8-4.8) L 01/07/22 11:40 [place] # (Auto) 0.6 10^3/uL (0.2-0.9) 01/07/22 11:40 Eos # (Auto) 0.0 10^3/uL (0.0-0.8) 01/07/22 11:40 Baso # (Auto) 0.1 10^3/uL (0.0-0.1) 01/07/22 11:40 Nucleated RBC % (auto) 0 % 01/07/22 11:40 Nucleated RBCs # 0.0 /100WBC 01/07/22 11:40 Sodium 136 mmol/L (136-145) 01/07/22 11:40 Potassium 4.3 mmol/L (3.5-5.1) 01/07/22 11:40 Chloride 101 mmol/L (98-107) 01/07/22 11:40 Carbon Dioxide 18 mmol/L (22-29) L 01/07/22 11:40 Anion Gap 21.3 (5-19) H 01/07/22 11:40 BUN 16 mg/dL (6-20) 01/07/22 11:40 Creatinine 1.5 mg/dL (0.5-0.9) H 01/07/22 11:40 GFR Calculation 38.5 mL/min (90-130) L 01/07/22 11:40 Glucose 108 mg/dL (65-115) 01/07/22 11:40 Calculated Osmolality 284 mOsm/kg (285-295) L 01/07/22 11:40 Lactate 1.0 mmol/L (0.5-2.2) 01/07/22 14:37 Calcium 9.6 mg/dL (8.5-10.5) 01/07/22 11:40 Total Bilirubin 0.5 mg/dL (0.15-1.2) 01/07/22 11:40 AST 35 U/L (0-32) H 01/07/22 11:40 ALT 31 U/L (0-33) 01/07/22 11:40 Alkaline Phosphatase 106 U/L (35-105) H 01/07/22 11:40 Total Protein 7.9 g/dL (6.6-8.7) 01/07/22 11:40 Albumin 4.4 g/dL (3.5-5.2) 01/07/22 11:40 Globulin 3.5 g/dL (1.3-4.6) 01/07/22 11:40 HCG, Qual Negative (Negative) 01/07/22 12:08 Urine Color Yellow (Yellow) 01/07/22 12:08 Urine Appearance Cloudy (CLEAR) A 01/07/22 12:08 Urine pH 5 (5-7) 01/07/22 12:08 Ur Specific [place] 1.015 (1.005-1.030) 01/07/22 12:08 Urine Protein 3+ (Negative) H 01/07/22 12:08 Urine Glucose (UA) Norm (Normal) 01/07/22 12:08 Urine Ketones Negative (Negative) 01/07/22 12:08 Urine Blood 3+ (Negative) H 01/07/22 12:08 Urine Nitrate Negative (Negative) 01/07/22 12:08 Urine Bilirubin Neg (Negative) 01/07/22 12:08 Urine Urobilinogen Norm mg/dL (Negative) 01/07/22 12:08 Ur Leukocyte Esterase Negative (Negative) 01/07/22 12:08 Urine RBC None /hpf (0-2) 01/07/22 12:08 Urine WBC 0-4 /hpf (0-5) H 01/07/22 12:08 Ur Squamous Epith Cells 0-4 /hpf (0-5) H 01/07/22 12:08 Amorphous Sediment Not Reportable 01/07/22 12:08 Urine Bacteria 1+ /hpf (NONE) H 01/07/22 12:08 Hyaline Casts 0-4 /lpf H 01/07/22 12:08 SARS-CoV-2 Ag (Rapid) negative (Negative) 01/07/22 12:13 Group A Strep Rapid Negative (Negative) 01/07/22 12:13 Discharge Plan Discharge Patient Disposition: Home Clinical Impression: Acute flank pain, Hematuria, UTI (urinary tract infection), Tachycardia, Leukocytosis Condition: Stable Prescriptions: New ciprofloxacin HCl 500 mg tablet 500 mg PO BID 10 Days Qty: 20 0RF ondansetron 4 mg tablet,disintegrating 4 mg PO Q8H PRN (Reason: nausea and vomiting) Qty: 15 0RF No Action oxybutynin chloride 5 mg tablet 5 mg PO BID Advil 200 mg Tablet 400 mg PO Q6H PRN (Reason: Pain) Tylenol 325 mg Capsule 650 mg PO QID PRN (Reason: Pain) Discharge Orders: Discharge ED (Routine); Ordered 01/07/22 Ordered By: Chris Anderson Referrals: Abdias Raymundo MD [Primary Care Provider] - Discharge Diet: Usual diet Discharge Activity: Increase activity as tolerated Patient Instructions: Urinary Tract Infection in Women (ED), Hematuria (ED), Flank Pain (ED) Activity Restrictions/Additional Instructions: Thank you for visiting the emergency department. You were seen and evaluated for flank pain. The exact cause of your symptoms is unclear as discussed though may be related to urinary tract infection. You do have an elevated white blood cell count as well as heart rate which can be indicative of more severe infection. I will treat you with antibiotics however if you begin to feel worse please return to an emergency department immediately. Please follow-up with a primary care provider. Return to the emergency department for anything else that you are concerned about a feel needs emergency department evaluation. Coding Level of Care Code ED Yarn Mercerizer Operator for Brice Fwunique Exam Comprehensive
[2022-01-07 12:02] LABS: Basophils # 0.1 10^3/uL (0.0-0.1); Basophils % 0.5 %; Eosinophils % 0.2 %; Hematocrit 51.4 % (37.0-47.0); Hemoglobin 16.2 g/dL (11.5-15.3); Lymphocytes # 0.7 10^3/uL (0.8-4.8); Lymphocytes % 4.1 %; Mean Corpuscular HGB Conc 31.5 g/dL (30.0-36.0); Mean Corpuscular Hemoglobin 28.7 pg (28.0-34.0); Monocytes # 0.6 10^3/uL (0.2-0.9); Monocytes % 3.6 %; Neutrophils # 14.55 10^3/uL (1.8-7.7); Neutrophils % 90.9 %; Nucleated Red Blood Cells % 0 %; Platelet Count 231 10^3/cmm (130-400); Red Blood Count 5.65 10^6/uL (4.1-5.3); Red Cell Distribution Width 14.5 % (12.1-15.1)
[2022-01-07 12:15] LABS: HCG Qualitative Urine. Negative (Negative)
[2022-01-07 12:25] LABS: Alanine Aminotransferase 31 U/L (0-33); Albumin Level 4.4 g/dL (3.5-5.2); Alkaline Phosphatase 106 U/L (35-105); Anion Gap 21.3 (5-19); Aspartate Amino Transferase 35 U/L (0-32); Blood Urea Nitrogen 16 mg/dL (6-20); Calcium 9.6 mg/dL (8.5-10.5); Carbon Dioxide 18 mmol/L (22-29); Chloride 101 mmol/L (98-107); Globulin 3.5 g/dL (1.3-4.6); Glomerular Filtration Rate 38.5 mL/min (90-130); Glucose 108 mg/dL (65-115); Osmolality Calculated 284 mOsm/kg (285-295); Potassium 4.3 mmol/L (3.5-5.1); Sodium 136 mmol/L (136-145); Total Bilirubin 0.5 mg/dL (0.15-1.2); Total Protein 7.9 g/dL (6.6-8.7)
[2022-01-07 12:26] LABS: Glucose Urine UA Norm (Normal); Protein Urine 3+ (Negative); Specific Gravity, Urine 1.015 (1.005-1.030); Urine Appearance Cloudy (CLEAR); Urine Color Yellow (Yellow); pH Urine 5 (5-7)
[2022-01-07 12:27] LABS: Add Urine Culture? No; Add Urine Microscopic? YES; Bacteria Urine 1+ /hpf; Bilirubin Urine Neg (Negative); Blood Urine 3+ (Negative); Hyaline Casts Urine 0-4 /lpf; Ketones Urine Negative (Negative); Leukocyte Esterase Urine Negative (Negative); Nitrate Urine Negative (Negative); Squamous Epithelial Cell Urine 0-4 /hpf (0-5); Urobilinogen Urine Norm (Negative); WBC Urine 0-4 /hpf (0-5)
[2022-01-07 12:29] LABS: Rapid Strep A Test Negative (Negative)
[2022-01-07] MEDS: acetaminophen 500 mg Tablet 1000 MG PO (12:31)
[2022-01-07] MEDS: sodium chloride 0.9% 1,000 ML 999 ML IV ×2 (12:32→15:29)
[2022-01-07 12:35] LABS: SARS Covid-2 Antigen negative (Negative)
[2022-01-07 12:36] VITALS: BP 153/109; PULSE 134; RESP 18; O2SAT 99
--- NOTE | 2022-01-07 12:36 | XR_ITS ---
WS: [id number] Exam: XR chest 1V portable [id number] Date/Time of Exam: 01/07/2022 12:36 PM Reason For Exam: fever Comparison 02/28/2019. Findings: The lungs are clear and fully expanded. Costophrenic angles are sharp. No infiltrates. Bronchovascula r relief appears normal. Cardiac silhouette is unremarkable. Bony elements are intact. XR/XR chest 1V portable [id number] IMPRESSION: Unremarkable chest radiograph.
--- NOTE | 2022-01-07 12:46 | CT_ITS ---
WS: [id number] CT ABDOMEN AND PELVIS NONCONTRAST HISTORY: hematuria, flank pain, fever TECHNIQUE: Imaging performed through the abdomen and pelvis. Coronal and sagittal reformats are submi tted. All CT scans at [facility] use at least one of these dose optimization techniques: auto mated exposure control; mA and/or kV adjustment per patient size (includes targeted exams where dose is matched to clinical indication); or iterative reconstruction. DLP: 506.87 mGy.cm COMPARISON: None available. Lower thorax: Lung bases are clear. Visualized heart is normal. Small hiatal hernia. Liver: Normal size liver. No mass or bile duct dilatation. Gallbladder: Normal gallbladder. Pancreas: Normal size and attenuation. Normal pancreatic duct. No pancreatitis or mass. Spleen: Normal. Adrenal glands: Normal. No mass. Right kidney: Abnormal shape of the RIGHT kidney. There are focal areas of cortical thinning and a lo bulated contour of the mid to lower kidney. Loss of the normal sulci. There may be an exophytic cyst or complex cyst from the lower pole. No adjacent perinephric stranding. There is mild dilatation of t he RIGHT ureter. Ureter tapers distally. Distal ureter is not identified. No calcifications in the ur eter are noted. Left kidney: Severe atrophy with dystrophic calcifications. Aorta: Normal abdominal aorta, no aneurysm or atherosclerosis. No free fluid, intraperitoneal air or significant lymphadenopathy. GI tract: Nondistended stomach. No small bowel obstruction. Increased density within the colon may be medicinal. No oral contrast was provided. The appendix appears normal. No colon obstruction. Abdominal wall: Negative. No hernia. Pelvis: Small amount of free fluid in the pelvis. Fluid extends just to the RIGHT of midline. The [place] is midline and normal size. In the RIGHT adnexa inseparable from the uterus and also the distal u reter is soft tissue mass. This may be associated with the uterus, ovary or fallopian tube. RIGHT ova ry is negative. Osseous structures: Unremarkable. CT/CT kidney stone [id number] IMPRESSION: 1. Very minimal prominence of the RIGHT ureter. No ureteral calcification iden tified. The distal ureter is obscured by RIGHT adnexal structures. 2. Abnormal contour of the RIGHT kidney. There is cortical thinning and possib le cyst or complex cyst in the lower pole. Ultrasound evaluation may provide ad ditional information. 3. Severe atrophy of the LEFT kidney. 4. Small amount of free fluid in the cul-de-sac. Fullness in the RIGHT adnexa. This can be further evaluated by transvaginal ultrasound is thought necessary. 5. Normal appendix. Notified Chris Anderson MD at 01/07/2022 2:45 PM.
[2022-01-07 13:39] VITALS: BP 119/65; PULSE 121; RESP 16; O2SAT 98
[2022-01-07 15:12] VITALS: BP 146/108; RESP 18; O2SAT 99
[2022-01-07] MEDS: cefTRIAXone 1,000 MG in sodium chloride 0.9% (plus) 50 ML 100 MG IV (16:04)
[2022-01-07 16:13] VITALS: BP 129/102; PULSE 111; RESP 16; O2SAT 99
--- NOTE | 2022-01-09 15:48 | PC.NURSE ---
Pt called concerned that she is not able sleep. Consulted with Dr Anderson.Encouraged to finish RX , then F/U with PCP and have another urine test.
== END 2022-01-07 16:14 | disposition home or self-care (01) ==
PROVIDERS: Emergency Provider Emergency Medicine; PCP Family Medicine
DX: N39.0 Urinary tract infection, site not specified (principal); R31.9 Hematuria, unspecified; R00.0 Tachycardia, unspecified; D72.829 Elevated white blood cell count, unspecified; Z20.822 Contact with and (suspected) exposure to COVID-19
CPT/HCPCS: 71045; 74176; 80053; 81001; 81025; 83605; 85025; 87040; 87081; 87426; 87880; 96365; 96375; 99285; J0696; J2930; J7030

== ENCOUNTER 2022-02-08 17:41 | Emergency (ER) | payer MEDICAID, SELFPAY ==
--- NOTE | 2022-02-08 18:16 | XRR_ITS ---
PROCEDURE INFORMATION: Exam: XR Chest Exam date and time: 02/08/2022 7:20 PM Age: 41 years old Clinical indication: Pain; Chest pressure; Additional info: Cp TECHNIQUE: Imaging protocol: Radiologic exam of the chest. Views: 1 view. COMPARISON: CR XR chest 1V portable [id number] 01/07/2022 12:42 PM FINDINGS: Lungs: The lungs are clear. Pleural spaces: Unremarkable. No pleural effusion. No pneumothorax. Heart/Mediastinum: Unremarkable. No cardiomegaly. Bones/joints: Unremarkable. XR/XR chest 1V portable [id number] IMPRESSION: No acute cardiopulmonary abnormality.
--- NOTE | 2022-02-08 18:19 | ED_ITS ---
HPI - Chest Pain General: Chief Complaint: Chest Pain Stated Complaint: CHEST PAIN Time Seen by Provider: 02/08/22 17:52 Source: EMS Mode of arrival: EMS Limitations: no limitations History of Present Illness: 41-year-old female states she ate a cheeseburger roughly 3 hours ago. She states she started having epigastric pain shortly thereafter. States is a burning pain in her epigastrium also some chest pain. She states the pain is currently a 3 out of 10 is a burning type pain. She denies any cough she denies any shortness of breath. Denies any vomiting or diarrhea. Associated symptoms: Reports abdominal pain; Deny dyspnea or fever(s) Review of Systems Const: Denies: fever(s), chills, body aches or change in appetite Eyes: Denies: blurry vision or eye discomfort ENMT: Denies: throat pain or dental pain Card: Reports: chest pain Resp: Denies: dyspnea GI: Reports: abdominal pain : Denies: dysuria Musc: Denies: neck pain or back pain Skin/Breast: Denies: rash Neuro: Denies: headache(s) Psych: Denies: depression Xavier/Lymph: Denies: easy bruising All/Imm: Denies: urticaria PFSH ED PFSH: Medical History Bladder wall thickening Family History Mother Gastric ulcer Father Hypertension Social History Smoking and tobacco status: never smoked Alcohol intake: former Former alcohol use details: rare Lives independently: Yes Household members: significant other Marital status: Life Partner Number of children: 1 History of recent travel: No Female Reproductive History: Date of last menstrual period: 12/28/20 Physical Exam Const: COMMON NORMALS: no acute distress, patient oriented x3 and healthy appearing HENMT: COMMON NORMALS: normocephalic and atraumatic HEAD & SCALP: normocephalic and atraumatic Eye: COMMON NORMALS: Equal, round and reactive pupils present and EOMs intact bilaterally PUPIL: Yes Equal, round and reactive pupils present Neck/C-Spine: COMMON NORMALS: full ROM and supple Chest: COMMONS NORMALS: normal inspection of the chest and normal palpation of entire chest wall Resp: COMMON NORMALS: normal respiratory effort, No retractions, No use of accessory muscles and clear to auscultation bilaterally AUSCULTATION: clear to auscultation bilaterally Cardio: COMMON NORMALS: regular rate, regular rhythm and No murmurs present (Cardio) RATE: regular rate RHYTHM: regular rhythm GI: COMMON NORMALS: Normal to inspection, nondistended, normoactive bowel sounds present, Soft to palpation, non-tender and no masses PALPATION: Yes Soft to palpation Extremity: COMMON NORMALS: normal to inspection and full ROM Neuro: COMMON NORMALS: patient oriented x3, moves all extremities and no focal motor deficits Psych: COMMON NORMALS: mental status grossly normal, Normal thought process present and cooperative THOUGHT PROCESS: Normal thought process present Skin: COMMON NORMALS: no rashes or lesions noted and no wounds GENERAL SKIN EXAM: no rashes or lesions noted MDM - Chest Pain Medical Decision Making Patient presents here with chest pains actually abdominal pain is likely gastritis states it started after she drank a energy drink and ate a burger her pains resolved here her troponins normal blood work is all normal we will start her on Protonix she is to follow-up with PCP and return if worsening she understands agrees to plan. Lab Data 02/08/22 18:23 02/08/22 18:23 Radiology Impressions Chest X-Ray 02/08/22 18:16 IMPRESSION: No acute cardiopulmonary abnormality. Laboratory Results WBC 7.2 10^3/uL (4.0-10.0) 02/08/22 18: RBC 4.43 10^6/uL (4.1-5.3) 02/08/22 18: Hgb 12.5 g/dL (11.5-15.3) 02/08/22 18: Hct 39.0 % (37.0-47.0) 02/08/22 18: MCV 88.0 fl (81-99) 02/08/22 18: MCH 28.2 pg (28.0-34.0) 02/08/22 18: MCHC 32.1 g/dL (30.0-36.0) 02/08/22 18: RDW 14.4 % (12.1-15.1) 02/08/22 18: Plt Count 194 10^3/cmm (130-400) 02/08/22 18: MPV 9.7 fL (7.4-10.4) 02/08/22 18: Neut % (Auto) 85.3 % 02/08/22 18: Lymph % (Auto) 5.0 % 02/08/22 18: [place] % (Auto) 6.6 % 02/08/22 18: Eos % (Auto) 2.1 % 02/08/22 18: Baso % (Auto) 0.6 % 02/08/22 18: Neut # (Auto) 6.11 10^3/uL (1.8-7.7) 02/08/22 18: Lymph # (Auto) 0.4 10^3/uL (0.8-4.8) L 02/08/22 18: [place] # (Auto) 0.5 10^3/uL (0.2-0.9) 02/08/22 18: Eos # (Auto) 0.2 10^3/uL (0.0-0.8) 02/08/22 18: Baso # (Auto) 0.0 10^3/uL (0.0-0.1) 02/08/22 18: Nucleated RBC % (auto) 0 % 02/08/22 18: Nucleated RBCs # 0.0 /100WBC 02/08/22 18: Sodium 130 mmol/L (136-145) L 02/08/22 18: Potassium 3.7 mmol/L (3.5-5.1) 02/08/22 18: Chloride 96 mmol/L (98-107) L 02/08/22 18: Carbon Dioxide 25 mmol/L (22-29) 02/08/22 18: Anion Gap 12.7 (5-19) 02/08/22 18: BUN 22 mg/dL (6-20) H 02/08/22 18: Creatinine 1.5 mg/dL (0.5-0.9) H 02/08/22 18: GFR Calculation 38.5 mL/min (90-130) L 02/08/22 18: Glucose 91 mg/dL (65-115) 02/08/22 18: Calculated Osmolality 273 mOsm/kg (285-295) L 02/08/22 18:23 Calcium 9.4 mg/dL (8.5-10.5) 02/08/22 18:23 Total Bilirubin 0.2 mg/dL (0.15-1.2) 02/08/22 18:23 AST 27 U/L (0-32) 02/08/22 18:23 ALT 30 U/L (0-33) 02/08/22 18:23 Alkaline Phosphatase 101 U/L (35-105) 02/08/22 18:23 Troponin T Baseline 6 ng/L (0-10) 02/08/22 18:23 Total Protein 6.9 g/dL (6.6-8.7) 02/08/22 18:23 Albumin 4.1 g/dL (3.5-5.2) 02/08/22 18:23 Globulin 2.8 g/dL (1.3-4.6) 02/08/22 18:23 Lipase 37 U/L (13-60) 02/08/22 18:23 Discharge Plan Discharge Patient Disposition: Home Clinical Impression: Chest pain Condition: Stable Prescriptions: New Protonix 40 mg tablet,delayed release (DR/EC) 40 mg PO DAILY Qty: 60 0RF No Action oxybutynin chloride 5 mg tablet 5 mg PO BID Advil 200 mg Tablet 400 mg PO Q6H PRN (Reason: Pain) Tylenol 325 mg Capsule 650 mg PO QID PRN (Reason: Pain) ondansetron 4 mg tablet,disintegrating 4 mg PO Q8H PRN (Reason: nausea and vomiting) Qty: 15 0RF Discharge Orders: Discharge ED (Routine); Ordered 02/08/22 Ordered By: Haile Head Referrals: Abdias Raymundo MD [Primary Care Provider] - 1-3 days Discharge Diet: Advance as tolerated Discharge Activity: Resume usual activity Patient Instructions: Chest Pain (ED) Coding Level of Care Code ED [employer] Director for Chg Fwd Exam Comprehensive
[2022-02-08 18:27] VITALS: BMI 29.2
[2022-02-08 18:29] LABS: Basophils % 0.6 %; Eosinophils # 0.2 10^3/uL (0.0-0.8); Eosinophils % 2.1 %; Hemoglobin 12.5 g/dL (11.5-15.3); Lymphocytes # 0.4 10^3/uL (0.8-4.8); Mean Corpuscular HGB Conc 32.1 g/dL (30.0-36.0); Mean Corpuscular Hemoglobin 28.2 pg (28.0-34.0); Mean Platelet Volume 9.7 fL (7.4-10.4); Monocytes # 0.5 10^3/uL (0.2-0.9); Monocytes % 6.6 %; Neutrophils # 6.11 10^3/uL (1.8-7.7); Neutrophils % 85.3 %; Nucleated Red Blood Cells % 0 %; Platelet Count 194 10^3/cmm (130-400); Red Blood Count 4.43 10^6/uL (4.1-5.3); Red Cell Distribution Width 14.4 % (12.1-15.1); White Blood Count 7.2 10^3/uL (4.0-10.0)
[2022-02-08 18:49] LABS: Troponin(5th) Baseline 6 ng/L (0-10)
[2022-02-08 18:50] LABS: Alanine Aminotransferase 30 U/L (0-33); Albumin Level 4.1 g/dL (3.5-5.2); Alkaline Phosphatase 101 U/L (35-105); Anion Gap 12.7 (5-19); Aspartate Amino Transferase 27 U/L (0-32); Blood Urea Nitrogen 22 mg/dL (6-20); Calcium 9.4 mg/dL (8.5-10.5); Carbon Dioxide 25 mmol/L (22-29); Chloride 96 mmol/L (98-107); Globulin 2.8 g/dL (1.3-4.6); Glomerular Filtration Rate 38.5 mL/min (90-130); Glucose 91 mg/dL (65-115); Lipase 37 U/L (13-60); Osmolality Calculated 273 mOsm/kg (285-295); Potassium 3.7 mmol/L (3.5-5.1); Sodium 130 mmol/L (136-145); Total Bilirubin 0.2 mg/dL (0.15-1.2); Total Protein 6.9 g/dL (6.6-8.7)
[2022-02-08 19:50] VITALS: BP 128/67; PULSE 117; RESP 20; O2SAT 99
--- NOTE | 2022-02-08 20:16 | ECG_ITS ---
[facility] Test Date: 2022-02-08 Pat Name: Renetta Johnson Department: Room: Gender: Female Court Operations Clerk: : 1980 Requested By: Haile Head Order Number: [id number] Jeovanny MD: Romina Fox M.D. Measurements Intervals Plato Rate: 104 P: 51 AR: 156 QRS: 33 QRSD: 76 T: 22 QT: 301 QTc: 397 Interpretive Statements SINUS TACHYCARDIA POSSIBLE RIGHT VENTRICULAR CONDUCTION DELAY [RSR (QR) IN V1/V2] ABNORMAL RHYTHM ECG Compared to ECG 02/28/2019 15:36:44 Sinus rhythm no longer present Electronically Signed On 02-10-2022 0:08:10 [employer] by Romina Fox M.D. [id number] naren
== END 2022-02-08 19:50 | disposition home or self-care (01) ==
PROVIDERS: Emergency Provider Emergency Medicine; PCP Family Medicine
DX: R07.9 Chest pain, unspecified (principal)
CPT/HCPCS: 71045; 80053; 83690; 84484; 85025; 93005; 99285

== ENCOUNTER → 2023-05-19 09:36 | Outpatient (BNVA) | payer MEDICAID, SELFPAY | PROVIDERS: PCP Family Medicine; Visit Provider Otolaryngology | DX: H69.93 Unspecified Eustachian tube disorder, bilateral (principal); H66.93 Otitis media, unspecified, bilateral; E04.2 Nontoxic multinodular goiter | CPT/HCPCS: 99203; 99204 ==

== ENCOUNTER 2024-09-16 16:10 | Emergency (ER) | payer MEDICAID, SELFPAY ==
--- OUTSIDE RECORDS SUMMARY | 2024-09-16 16:13 | XMS_ITS | Encounter Summary ---
Author Organization [facility] Address [address] [place] [address] Care Team Providers Care Electric Switch Tester Name Role Phone Damon Bales MD Primary Care Provider [phone] Encounter Details Date Type Department Care Team (Latest Contact Info) Description 09/16/2005 Outpatient Historical [facility] [address] 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
--- OUTSIDE RECORDS SUMMARY | 2024-09-16 16:13 | XMS_ITS | Clinical Summary ---
Author Organization [facility] Address [address] [place] [address] Care Team Providers Care Fitter Up Name Role Phone Damon Bales MD Primary Care Provider [phone] Allergies No known active allergies Medications acetaminophen-is ometh-dichloral (EPIDRIN) 325-65-100 mg Oral Cap Take 1 Cap by mouth every 4 hours as needed. Active aspirin (ECOTRIN EC) 81 mg Tablet, Delayed Release (E.C.) Take 81 mg by mouth daily. Active Active Problems Problem Noted Date Diagnosed Date AVM (arteriovenous malformation) 11/29/2008 Overview (04/08/2010): Updating IMO/ICD9 Code and Description Immunizations Immunization Administration Dates Next Due Dt Dtp Dtap Vaccine 05/18/1996 Family History Medical History Relation Name Comments Healthy Daughter Healthy Father Healthy Mother Healthy Sister Relation Name Status Comments Daughter Alive Father Alive Mother Alive Sister Alive Social History Tobacco Use Types Packs/Day Years Used Date Smoking Tobacco: Never Smokeless Tobacco: Never Tobacco Cessation:Counseling Given: No Alcohol Use Standard Drinks/Week Comments Never 0 (1 standard drink = 0.6 oz pur e alcohol) Comments No Sex and Gender Information Value Date Recorded Sex Assigned at Not on file Legal Sex Female 4:08 AM RAG WILLOW OPERATOR Gender Identity Not on file Sexual Orientation Not on file Last Filed Vital Signs Vital Sign Reading Time Taken Comments Blood Pressure 122/86 05/09/2019 2:58 PM RAG WILLOW OPERATOR Pulse 60 05/09/2019 2:58 PM RAG WILLOW OPERATOR Temperature 37 C (98.6 F) 11/29/2008 2:58 PM CDT Respiratory Rate 20 11/29/2008 2:58 PM CDT Oxygen Saturation - - Inhaled Oxygen Concentration - - Weight 68.9 kg (152 lb) 05/09/2019 2:58 PM RAG WILLOW OPERATOR Height 154.9 cm (5' 1 ) 05/09/2019 2:58 PM RAG WILLOW OPERATOR Body Mass Index 28.72 05/09/2019 2:58 PM RAG WILLOW OPERATOR Plan of Treatment Health Maintenance Due Date Last Done Comments HEPATITIS B VACCINES (1 of 3 - 19+ 3-dose series) 2000 Preventative Visit-Managed Medicaid 2000 HPV/Cotest (21-29) 2002 DTAP/TDAP/TD VACCINES (2 - Tdap) 05/18/2006 05/18/18 97 CERVICAL CANCER SCREENING 11/09/2011 HPV/Cotest (30-65) 11/09/2011 PAP SMEAR 11/09/2011 BREAST CANCER SCREENING 2021 INFLUENZA VACCINE (#1) 2024 HPV VACCINES Aged Out No longer eligi ble based on patient's age to [place] [address] [place] Care Teams Fitter Up Relationship Specialty Start Date End Date Damon Bales MD [address] [address] PCP - General 04/30/05
--- OUTSIDE RECORDS SUMMARY | 2024-09-16 16:13 | XMS_ITS | Encounter Summary ---
Author Organization [facility] Address [address] [place] [address] Care Team Providers Care Food Services Coordinator Name Role Phone Damon Bales MD Primary Care Provider [phone] Encounter Details Date Type Department Care Team (Latest Contact Info) Description 12/09/2005 Outpatient Historical [facility] Neurosurgery- [place] [address] [facility] [address] [place] [address] Damon Bales MD [address] [place] [address] Cerebrovascular Anomaly (Primary Dx) Social History Tobacco Use Types Packs/Day Years Used Date Smoking Tobacco: Never Assessed Comments Unknown Sex and Gender Information Value Date Recorded Sex Assigned at Not on file Legal Sex Female 4:08 AM PARI MUTUAL TICKET CHECKER Gender Identity Not on file Sexual Orientation Not on file documented as of this encounter Plan of Treatment Not on file documented as of this encounter Visit Diagnoses Diagnosis Cerebrovascular anomaly- Primary Congenital anomaly of cerebrovascular system documented in this encounter Care Teams Food Services Coordinator Relationship Specialty Start Date End Date Damon Bales MD [address] [place] [address] PCP - General 04/30/05 documented as of this encounter
--- OUTSIDE RECORDS SUMMARY | 2024-09-16 16:13 | XMS_ITS | Encounter Summary ---
Author Organization [facility] Address [address] [place] [address] Care Team Providers Care Sign Erector And Repairer Name Role Phone Damon Bales MD Primary Care Provider [phone] Encounter Details Date Type Department Care Team (Latest Contact Info) Description 02/18/2006 Outpatient Historical [facility] [place] [address] [facility] [address] [place] [address] Damon Bales MD [address] [place] [address] Follow-Up Examination, Following Unspecified Surgery (Primary Dx) Social History Tobacco Use Types Packs/Day Years Used Date Smoking Tobacco: Never Assessed Comments Unknown Sex and Gender Information Value Date Recorded Sex Assigned at Not on file Legal Sex Female 4:08 AM RESIDENCE HALL DIRECTOR Gender Identity Not on file Sexual Orientation Not on file documented as of this encounter Plan of Treatment Not on file documented as of this encounter Visit Diagnoses Diagnosis Follow-up examination, following unspecified surgery- Primary documented in this encounter Care Teams Sign Erector And Repairer Relationship Specialty Start Date End Date Damon Bales MD [address] [place] [address] PCP - General 04/30/05 documented as of this encounter
--- OUTSIDE RECORDS SUMMARY | 2024-09-16 16:13 | XMS_ITS | Encounter Summary ---
Author Organization [facility] Address [address] [place] [address] Care Team Providers Care Black Top Paver Operator Name Role Phone Damon Bales MD Primary Care Provider [phone] Encounter Details Date Type Department Care Team (Latest Contact Info) Description 05/08/2005 Outpatient Historical [facility]gery [facility] [address] [facility] [address] [place] [address] Damon Bales MD [address] [place] [address] NERVOUS SYSTEM ANOM NOS (CMS/HCC) (Primary Dx) Social History Tobacco Use Types Packs/Day Years Used Date Smoking Tobacco: Never Assessed Comments Unknown Sex and Gender Information Value Date Recorded Sex Assigned at Not on file Legal Sex Female 4:08 AM POISING INSPECTOR Gender Identity Not on file Sexual Orientation Not on file documented as of this encounter Plan of Treatment Not on file documented as of this encounter Visit Diagnoses Diagnosis Unspecified congenital anomaly of brain, spinal cord, 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
--- OUTSIDE RECORDS SUMMARY | 2024-09-16 16:13 | XMS_ITS | Encounter Summary ---
Author Organization [facility] Address [address] [place] [address] Care Team Providers Care Inclusion Intern Name Role Phone Damon Bales MD Primary Care Provider [phone] Encounter Details Date Type Department Care Team (Latest Contact Info) Description 04/24/1998 Outpatient Historical [facility] Ear, Nose and Throat [address] [place] [address] [place] [address] [address] [place] [address] Impacted cerumen (Primary Dx) Social History Tobacco Use Types Packs/Day Years Used Date Smoking Tobacco: Never Assessed Comments Unknown Sex and Gender Information Value Date Recorded Sex Assigned at Not on file Legal Sex Female 4:08 AM ENVIRONMENTAL FIELD SERVICES TECHNICIAN Gender Identity Not on file Sexual Orientation Not on file documented as of this encounter Plan of Treatment Not on file documented as of this encounter Visit Diagnoses Diagnosis Impacted cerumen- Primary documented in this encounter Care Teams Inclusion Intern Relationship Specialty Start Date End Date Damon Bales MD [address] [place] [address] PCP - General 04/30/05 documented as of this encounter
--- OUTSIDE RECORDS SUMMARY | 2024-09-16 16:13 | XMS_ITS | Encounter Summary ---
Author Organization [facility] Address [address] [place] [address] Care Team Providers Care Barbed Wire Machine Operator Name Role Phone Damon Bales MD Primary Care Provider [phone] Encounter Details Date Type Department Care Team (Latest Contact Info) Description 03/31/2005 Outpatient Historical [facility] Neurosurgery- [place] [address] [address] [facility] [address] [place] [address] Jose Martin Dobbs MD [address] [place] [address] Hemangioma intracranial (Primary Dx) Social History Tobacco Use Types Packs/Day Years Used Date Smoking Tobacco: Never Assessed Comments Unknown Sex and Gender Information Value Date Recorded Sex Assigned at Not on file Legal Sex Female 4:08 AM FINISHING AREA SUPERVISOR Gender Identity Not on file Sexual Orientation Not on file documented as of this encounter Plan of Treatment Not on file documented as of this encounter Visit Diagnoses Diagnosis Hemangioma intracranial- Primary Hemangioma of intracranial structures documented in this encounter Care Teams Barbed Wire Machine Operator Relationship Specialty Start Date End Date Damon Bales MD [address] [facility] [address] [place] [address] PCP - General 04/30/05 documented as of this encounter
--- OUTSIDE RECORDS SUMMARY | 2024-09-16 16:13 | XMS_ITS | Encounter Summary ---
Author Organization [facility] Address [address] [place] [address] Care Team Providers Care Furniture Sales Associate Name Role Phone Damon Bales MD Primary Care Provider [phone] Encounter Details Date Type Department Care Team (Latest Contact Info) Description 04/07/2005 Outpatient Historical [facility] Radiosurgery Cancer Center [address] [facility] [address] [place] [address] Damon Bales MD [address] [employer] [address] [address] CEREBROVASCULAR ANOMALY (Primary Dx) Social History Tobacco Use Types Packs/Day Years Used Date Smoking Tobacco: Never Assessed Comments Unknown Sex and Gender Information Value Date Recorded Sex Assigned at Not on file Legal Sex Female 4:08 AM HOTEL ENGINEER Gender Identity Not on file Sexual Orientation Not on file documented as of this encounter Plan of Treatment Not on file documented as of this encounter Visit Diagnoses Diagnosis Congenital anomaly of cerebrovascular system- Primary documented in this encounter Care Teams Furniture Sales Associate Relationship Specialty Start Date End Date Damon Bales MD [address] [place] [address] PCP - General 04/30/05 documented as of this encounter
--- OUTSIDE RECORDS SUMMARY | 2024-09-16 16:13 | XMS_ITS | Encounter Summary ---
Author Organization [facility] Address [address] [place] [address] Care Team Providers Care Supervisor Liquefaction Name Role Phone Damon Bales MD Primary Care Provider [phone] Encounter Details Date Type Department Care Team (Latest Contact Info) Description 10/27/2005 Outpatient Historical [facility] Neurology [address] [facility], [address] [place] [address] Dania Churchill MD [address] [facility] [address] [place] [address] Other Convulsions (CMS/HCC) (Primary Dx) Social History Tobacco Use Types Packs/Day Years Used Date Smoking Tobacco: Never Assessed Comments Unknown Sex and Gender Information Value Date Recorded Sex Assigned at Not on file Legal Sex Female 4:08 AM DIRECTOR WEIGHTS AND MEASURES Gender Identity Not on file Sexual Orientation Not on file documented as of this encounter Plan of Treatment Not on file documented as of this encounter Visit Diagnoses Diagnosis Other convulsions- Primary documented in this encounter Care Teams Supervisor Liquefaction Relationship Specialty Start Date End Date Damon Bales MD [address] [place] [address] PCP - General 04/30/05 documented as of this encounter
--- OUTSIDE RECORDS SUMMARY | 2024-09-16 16:13 | XMS_ITS | Encounter Summary ---
Author Organization [facility] Address [address] [place] [address] Care Team Providers Care Polarity Tester Name Role Phone Damon Bales MD Primary Care Provider [phone] Encounter Details Date Type Department Care Team (Late st Contact Info) Description 12/23/2005 Outpatient Historical [facility] Damon Bales MD [address] [place] [address] Social History Tobacco Use Types Packs/Day Years Used Date Smoking Tobacco: Never Assessed Comments Unknown Sex and Gender Information Value Date Recorded Sex Assigned at Not on file Legal Sex Female 4:08 AM DOCTOR OF DENTAL SURGERY Gender Identity Not on file Sexual Orientation Not on file documented as of this encounter Plan of Treatment Not on file documented as of this encounter Visit Diagnoses Not on filedocumented in this encounter Care Teams Polarity Tester Relationship Specialty Start Date End Date Damon Bales MD [address] [place] [address] PCP - General 04/30/05 documented as of this encounter
--- OUTSIDE RECORDS SUMMARY | 2024-09-16 16:13 | XMS_ITS | Encounter Summary ---
Author Organization [facility] Address [address] [place] [address] Care Team Providers Care Hogshead Press Operator Name Role Phone Damon Bales MD Primary Care Provider [phone] Encounter Details Date Type Department Care Team (Late st Contact Info) Description 04/24/1998 Outpatient Historical [facility] Ear, Nose and Throat [address] [place] [address] [place] [address] Social History Tobacco Use Types Packs/Day Years Used Date Smoking Tobacco: Never Assessed Comments Unknown Sex and Gender Information Value Date Recorded Sex Assigned at Not on file Legal Sex Female 4:08 AM REORDERING CLERK Gender Identity Not on file Sexual Orientation Not on file documented as of this encounter Plan of Treatment Not on file documented as of this encounter Visit Diagnoses Not on filedocumented in this encounter Care Teams Hogshead Press Operator Relationship Specialty Start Date End Date Damon Bales MD [address] [place] [address] PCP - General 04/30/05 documented as of this encounter
--- OUTSIDE RECORDS SUMMARY | 2024-09-16 16:13 | XMS_ITS | Encounter Summary ---
Author Organization [facility] Address [address] [place] [address] Care Team Providers Care Wreath Inspector Name Role Phone Damon Bales MD Primary Care Provider [phone] Encounter Details Date Type Department Care Team (Late st Contact Info) Description 09/18/2005 Outpatient Historical [facility] Ear, Nose and Throat [address] 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 Social History Tobacco Use Types Packs/Day Years Used Date Smoking Tobacco: Never Assessed Comments Unknown Sex and Gender Information Value Date Recorded Sex Assigned at Not on file Legal Sex Female 4:08 AM PRODUCTION CELL LEADER Gender Identity Not on file Sexual Orientation Not on file documented as of this encounter Plan of Treatment Not on file documented as of this encounter Visit Diagnoses Diagnosis Epistaxis- Primary Congenital anomaly of the peripheral vascular system, 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
--- OUTSIDE RECORDS SUMMARY | 2024-09-16 16:13 | XMS_ITS | Encounter Summary ---
Author Organization [facility] Address [address] [place] [address] Care Team Providers Care Java Manager Name Role Phone Damon Bales MD Primary Care Provider Encounter Details Date Type Department Care Team (Late st Contact Info) Description 05/05/2005 Outpatient Historical [facility] Damon Bales MD [address] [place] [address] Social History Tobacco Use Types Packs/Day Years Used Date Smoking Tobacco: Never Assessed Comments Unknown Sex and Gender Information Value Date Recorded Sex Assigned at Not on file Legal Sex Female 4:08 AM SOIL CHEMIST Gender Identity Not on file Sexual Orientation Not on file documented as of this encounter Plan of Treatment Not on file documented as of this encounter Visit Diagnoses Not on filedocumented in this encounter Care Teams Java Manager Relationship Specialty Start Date End Date Damon Bales MD [address] [place] [address] PCP - General 04/30/05 documented as of this encounter
--- OUTSIDE RECORDS SUMMARY | 2024-09-16 16:13 | XMS_ITS | Encounter Summary ---
Author Organization [facility] Address [address] [place] [address] Care Team Providers Care Water Treatment Plant Supervisor Name Role Phone Damon Bales MD Primary Care Provider [phone] Encounter Details Date Type Department Care Team (Latest Contact Info) Description 09/18/2005 Outpatient Historical [facility] Radiosurgery Cancer Center [address] [facility] [address] [place] [address] Damon Bales MD [address] [address] Epistaxis (Primary Dx) Social History Tobacco Use Types Packs/Day Years Used Date Smoking Tobacco: Never Assessed Comments Unknown Sex and Gender Information Value Date Recorded Sex Assigned at Not on file Legal Sex Female 4:08 AM HOTEL STAFF MEMBER Gender Identity Not on file Sexual Orientation Not on file documented as of this encounter Plan of Treatment Not on file documented as of this encounter Visit Diagnoses Diagnosis Epistaxis- Primary documented in this encounter Care Teams Water Treatment Plant Supervisor Relationship Specialty Start Date End Date Damon Bales MD [address] [place] [address] PCP - General 04/30/05 documented as of this encounter
--- OUTSIDE RECORDS SUMMARY | 2024-09-16 16:13 | XMS_ITS | Encounter Summary ---
Author Organization [facility] Address [address] [place] [address] Care Team Providers Care Biofuels Plant Construction Worker Name Role Phone Damon Bales MD Primary Care Provider [phone] Encounter Details Date Type Department Care Team (Latest Contact Info) Description 06/05/2005 Outpatient Historical [facility] [address] [place] [address] Jose Martin Dobbs MD [address] [place] [address] Aftercare Following Surgery for Neoplasm (Primary Dx) Social History Tobacco Use Types Packs/Day Years Used Date Smoking Tobacco: Never Assessed Comments Unknown Sex and Gender Information Value Date Recorded Sex Assigned at Not on file Legal Sex Female 4:08 AM DIGESTER Gender Identity Not on file Sexual Orientation Not on file documented as of this encounter Plan of Treatment Not on file documented as of this encounter Visit Diagnoses Diagnosis Aftercare following surgery for neoplasm- Primary documented in this encounter Care Teams Biofuels Plant Construction Worker Relationship Specialty Start Date End Date Damon Bales MD [address] [address] PCP - General 04/30/05 documented as of this encounter
--- OUTSIDE RECORDS SUMMARY | 2024-09-16 16:13 | XMS_ITS | Encounter Summary ---
Author Organization [facility] Address [address] [place] [address] Care Team Providers Care Metal Annealer Name Role Phone Damon Bales MD Primary Care Provider [phone] Encounter Details Date Type Department Care Team (Latest Contact Info) Description 03/11/2006 Outpatient Historical [facility] Neurology [address] [facility] [place] [address] Dania Churchill MD [address] [facility] [address] [place] [address] Other Convulsions (CMS/HCC) (Primary Dx) Social History Tobacco Use Types Packs/Day Years Used Date Smoking Tobacco: Never Assessed Comments Unknown Sex and Gender Information Value Date Recorded Sex Assigned at Not on file Legal Sex Female 4:08 AM PUBLIC UTILITIES SALES REPRESENTATIVE Gender Identity Not on file Sexual Orientation Not on file documented as of this encounter Plan of Treatment Not on file documented as of this encounter Visit Diagnoses Diagnosis Other convulsions- Primary documented in this encounter Care Teams Metal Annealer Relationship Specialty Start Date End Date Damon Bales MD [address] [place] [address] PCP - General 04/30/05 documented as of this encounter
--- OUTSIDE RECORDS SUMMARY | 2024-09-16 16:13 | XMS_ITS | Encounter Summary ---
Author Organization [facility] Address [address] [place] [address] Care Team Providers Care Electronic Imaging System Operator Name Role Phone Damon Bales MD Primary Care Provider [phone] Encounter Details Date Type Department Care Team (Latest Contact Info) Description 09/18/2005 Outpatient Historical [facility] Damon Bales MD [address] [place] [address] Encounters for Unspecified Administrative Purpose (Primary Dx) Social History Tobacco Use Types Packs/Day Years Used Date Smoking Tobacco: Never Assessed Comments Unknown Sex and Gender Information Value Date Recorded Sex Assigned at Not on file Legal Sex Female 4:08 AM IC ENGINEER Gender Identity Not on file Sexual Orientation Not on file documented as of this encounter Plan of Treatment Not on file documented as of this encounter Visit Diagnoses Diagnosis Encounters for unspecified administrative purpose- Primary documented in this encounter Care Teams Electronic Imaging System Operator Relationship Specialty Start Date End Date Damon Bales MD [address] [place] [address] PCP - General 04/30/05 documented as of this encounter
--- OUTSIDE RECORDS SUMMARY | 2024-09-16 16:13 | XMS_ITS | Encounter Summary ---
Author Organization [facility] Address [address] [place] [address] Care Team Providers Care Seed Cone Picker Name Role Phone Damon Bales MD Primary Care Provider [phone] Encounter Details Date Type Department Care Team (Latest Contact Info) Description 06/05/2005 Outpatient Historical [facility] [address] [facility] [address] [place] [address] Jose Martin Dobbs MD [address] [place] [address] Headache (Primary Dx) Social History Tobacco Use Types Packs/Day Years Used Date Smoking Tobacco: Never Assessed Comments Unknown Sex and Gender Information Value Date Recorded Sex Assigned at Not on file Legal Sex Female 4:08 AM RADIOLOGY SERVICES MANAGER Gender Identity Not on file Sexual Orientation Not on file documented as of this encounter Plan of Treatment Not on file documented as of this encounter Visit Diagnoses Diagnosis Headache(784.0)- Primary Headache documented in this encounter Care Teams Seed Cone Picker Relationship Specialty Start Date End Date Damon Bales MD [address] [facility] [address] [place] [address] PCP - General 04/30/05 documented as of this encounter
--- OUTSIDE RECORDS SUMMARY | 2024-09-16 16:13 | XMS_ITS | Encounter Summary ---
Author Organization [facility] Address [address] [place] [address] Care Team Providers Care Community Service Officer Coordinator Name Role Phone Damon Bales MD Primary Care Provider [phone] Encounter Details Date Type Department Care Team (Latest Contact Info) Description 02/18/2006 Outpatient Historical [facility] Imaging Services [address] [place] [address] Damon Bales MD [address] [address] Compression of Brain (CMS/HCC) (Primary Dx) Social History Tobacco Use Types Packs/Day Years Used Date Smoking Tobacco: Never Assessed Comments Unknown Sex and Gender Information Value Date Recorded Sex Assigned at Not on file Legal Sex Female 4:08 AM CPO Gender Identity Not on file Sexual Orientation Not on file documented as of this encounter Plan of Treatment Not on file documented as of this encounter Procedures Procedure Name Priority Date/Time Associated Diagnosis Comments POC CREATININE Routine 02/18/2006 11:43 AM CPO documented in this encounter Results * POC CREATININE (02/18/2006 11:43 AM CPO) CREATININE POC 1.2 0.7 - 1.2 mg/dL INTERFACE SYSTEM 02/18/2006 11:4 3 AM CPO us Damon Bales MD POINT OF CARE TESTING Final Re sult INTERFACE SYSTEM Refer to clinic/hospital department documented in this encounter Visit Diagnoses Diagnosis Compression of brain (CMS/HCC)- Primary Compression of brain documented in this encounter Care Teams Community Service Officer Coordinator Relationship Specialty Start Date End Date Damon Bales MD [address] [id number] PCP - General 04/30/05 documented as of this encounter
--- OUTSIDE RECORDS SUMMARY | 2024-09-16 16:13 | XMS_ITS | Encounter Summary ---
Author Organization [facility] Address [address] [place] [address] Care Team Providers Care Photo Graphics Librarian Name Role Phone Damon Bales MD Primary Care Provider [phone] Encounter Details Date Type Department Care Team (Late st Contact Info) Description 03/10/2005 Inpatient Historical [facility] Damon Bales MD [address] [place] [address] SUBARACHNOID HEMORRHAGE (CMS/HCC) (Primary Dx) Social History Tobacco Use Types Packs/Day Years Used Date Smoking Tobacco: Never Assessed Comments Unknown Sex and Gender Information Value Date Recorded Sex Assigned at Not on file Legal Sex Female 4:08 AM MULTIFOCAL LENS INSPECTOR Gender Identity Not on file Sexual Orientation Not on file documented as of this encounter Plan of Treatment Not on file documented as of this encounter Procedures Procedure Name Priority Date/Time Associated Diagnosis Comments CBC WITH DIFFERENTIAL Routine 03/10/2005 2:24 AM MULTIFOCAL LENS INSPECTOR COMPREHENSIVE METABOLIC PANEL Routine 03/10/2005 2:24 AM MULTIFOCAL LENS INSPECTOR PT AND APTT Routine 03/10/2005 1:16 AM MULTIFOCAL LENS INSPECTOR CBC WITH DIFFERENTIAL Routine 03/10/2005 1:16 AM MULTIFOCAL LENS INSPECTOR BASIC METABOLIC PANEL Routine 03/10/2005 1:16 AM MULTIFOCAL LENS INSPECTOR documented in this encounter Results * (ABNORMAL) CBC WITH DIFFERENTIAL (03/10/2005 2:24 AM MULTIFOCAL LENS INSPECTOR) WBC 11.1(H) 4.5 - 11.0 K/ul INTERFACE SYSTEM RBC 4.45 4.20 - 5.40 Mil/ul INTERFACE SYSTEM HEMOGLOBIN 13.0 12.0 - 16.0 g/dL INTERFACE SYSTEM HEMATOCRIT 39.4 36.0 - 46.0 % INTERFACE SYSTEM MCV 88.5 84.0 - 103.0 Fl INTERFACE SYSTEM MCH 29.2 27.0 - 34.0 pg INTERFACE SYSTEM MCHC 33.0 30.0 - 35.0 g/dL INTERFACE SYSTEM RDW 14.4 11.0 - 14.5 % INTERFACE SYSTEM PLATELETS 253 140 - 440 K/ul INTERFACE SYSTEM MPV 9.9 8.9 - 12.8 Fl INTERFACE SYSTEM NEUTROPHILS 68.1 42.2 - 75.2 % INTERFACE SYSTEM LYMPHOCYTES 19.8(L) 24.0 - 44.0 % INTERFACE SYSTEM MONOCYTES 7.0 2.0 - 10.0 % INTERFACE SYSTEM EOSINOPHILS 4.6 0.0 - 7.0 % INTERFACE SYSTEM BASOPHILS 0.5 0.0 - 1.0 % INTERFACE SYSTEM NEUTROPHIL ABSOLUTE 7.5 2.0 - 8.0 K/uL INTERFACE SYSTEM LYMPHOCYTE ABSOLUTE 2.2 1.2 - 4.0 K/ul INTERFACE SYSTEM MONOCYTE ABSOLUTE 0.8(H) 0.1 - 0.6 K/ul INTERFACE SYSTEM EOSINOPHIL ABSOLUTE 0.5 0.0 - 0.7 K/ul INTERFACE SYSTEM BASOPHILS ABSOLUTE 0.1 0.0 - 0.2 K/ul INTERFACE SYSTEM 03/10/2005 2:24 AM MULTIFOCAL LENS INSPECTOR us Damon Bales MD HEMATOLOGY ORDERABLES Final Re sult INTERFACE SYSTEM Refer to clinic/hospital department * (ABNORMAL) COMPREHENSIVE METABOLIC PANEL (03/10/2005 2:24 AM MULTIFOCAL LENS INSPECTOR) GLUCOSE 93 70 - 110 mg/dL INTERFACE SYSTEM BUN 18(H) 7 - 17 mg/dL INTERFACE SYSTEM CREATININE 1.3(H) 0.7 - 1.2 mg/dL INTERFACE SYSTEM SODIUM 139 136 - 145 mEq/L INTERFACE SYSTEM POTASSIUM 3.9 3.5 - 5.0 mEq/L INTERFACE SYSTEM CO2 23 22 - 32 mmol/l INTERFACE SYSTEM CHLORIDE 108 95 - 110 mEq/L INTERFACE SYSTEM CALCIUM 9.1 8.4 - 10.5 mg/dL INTERFACE SYSTEM ALKALINE PHOSPHATASE 79 38 - 126 IU/L INTERFACE SYSTEM TOTAL PROTEIN 7.3 6.3 - 8.2 g/dL INTERFACE SYSTEM ALBUMIN 4.0 3.5 - 5.0 g/dL INTERFACE SYSTEM AST 24 14 - 36 IU/L INTERFACE SYSTEM ALT 27 9 - 52 IU/L INTERFACE SYSTEM BILIRUBIN TOTAL 0.4 0.2 - 1.4 mg/dL INTERFACE SYSTEM GLOBULIN (CALC) 3.3 2.4 - 3.9 g/dL INTERFACE SYSTEM ANION GAP 12 9 - 20 mEq/L INTERFACE SYSTEM ALBUMIN/GLOBULIN RATIO 1.2 1.0 - 2.3 INTERFACE SYSTEM OSMOLALITY, CALCULATED 287 275 - 295 mOsm/Kg INTERFACE SYSTEM 03/10/2005 2:24 AM MULTIFOCAL LENS INSPECTOR us Damon Bales MD CHEMISTRY ORDERABLES Final Res ult Performing Organization Address [facility] de Phone Number INTERFACE SYSTEM Refer to clinic/hospital department * PT AND APTT (03/10/2005 1:16 AM MULTIFOCAL LENS INSPECTOR) PROTIME 14.1 12.6 - 14.9 Secs INTERFACE SYSTEM Comment: As of 04 note change in normal range. INR 1.0 INTERFACE SYSTEM Comment: Expected Values for INR: DVT/PE Goal INR 2.5; range 2.0 - 3.0 Valve Replacement Tissue Goal INR 2.5; range 2.0 - 3.0 Mechanical Goal INR 3.0; range 2.5 - 3.5 POST-ID Goal INR 2.5; range 2.0 - 3.0 or Goal 3.0; range 2.5 - 3.5 Atrial Fibrillation Goal INR 2.5; range 2.0 - 3.0 Ischemic Stroke Goal INR 2.5; range 2.0 - 3.0 For additional information see Guidelines for Anticoagulation available from the pharmacy [facility]. PTT 32.8 24.3 - 37.5 Secs INTERFACE SYSTEM Comment:Therapeutic Range: 03/10/2005 1:16 AM MULTIFOCAL LENS INSPECTOR us Pamella Champagne MD HEMATOLOGY ORDERABLES Final Result Performing Organization Address [facility] Co de Phone Number INTERFACE SYSTEM Refer to clinic/hospital department * (ABNORMAL) BASIC METABOLIC PANEL (03/10/2005 1:16 AM MULTIFOCAL LENS INSPECTOR) GLUCOSE 89 70 - 110 mg/dL INTERFACE SYSTEM BUN 18(H) 7 - 17 mg/dL INTERFACE SYSTEM CREATININE 1.4(H) 0.7 - 1.2 mg/dL INTERFACE SYSTEM SODIUM 140 136 - 145 mEq/L INTERFACE SYSTEM POTASSIUM 3.8 3.5 - 5.0 mEq/L INTERFACE SYSTEM CHLORIDE 106 95 - 110 mEq/L INTERFACE SYSTEM CO2 24 22 - 32 mmol/l INTERFACE SYSTEM ANION GAP 14 9 - 20 mEq/L INTERFACE SYSTEM OSMOLALITY, CALCULATED 289 275 - 295 mOsm/Kg INTERFACE SYSTEM CALCIUM 9.2 8.4 - 10.5 mg/dL INTERFACE SYSTEM 03/10/2005 1:16 AM MULTIFOCAL LENS INSPECTOR us Pamella Champagne MD CHEMISTRY ORDERABLES Final R esult INTERFACE SYSTEM Refer to clinic/hospital department * (ABNORMAL) CBC WITH DIFFERENTIAL (03/10/2005 1:16 AM MULTIFOCAL LENS INSPECTOR) WBC 10.6 4.5 - 11.0 K/ul INTERFACE SYSTEM RBC 4.61 4.20 - 5.40 Mil/ul INTERFACE SYSTEM HEMOGLOBIN 13.4 12.0 - 16.0 g/dL INTERFACE SYSTEM HEMATOCRIT 41.2 36.0 - 46.0 % INTERFACE SYSTEM MCV 89.4 84.0 - 103.0 Fl INTERFACE SYSTEM MCH 29.1 27.0 - 34.0 pg INTERFACE SYSTEM MCHC 32.5 30.0 - 35.0 g/dL INTERFACE SYSTEM RDW 14.5 11.0 - 14.5 % INTERFACE SYSTEM PLATELETS 245 140 - 440 K/ul INTERFACE SYSTEM MPV 9.8 8.9 - 12.8 Fl INTERFACE SYSTEM NEUTROPHILS 70.9 42.2 - 75.2 % INTERFACE SYSTEM LYMPHOCYTES 17.9(L) 24.0 - 44.0 % INTERFACE SYSTEM MONOCYTES 6.6 2.0 - 10.0 % INTERFACE SYSTEM EOSINOPHILS 4.2 0.0 - 7.0 % INTERFACE SYSTEM BASOPHILS 0.4 0.0 - 1.0 % INTERFACE SYSTEM NEUTROPHIL ABSOLUTE 7.5 2.0 - 8.0 K/uL INTERFACE SYSTEM LYMPHOCYTE ABSOLUTE 1.9 1.2 - 4.0 K/ul INTERFACE SYSTEM MONOCYTE ABSOLUTE 0.7(H) 0.1 - 0.6 K/ul INTERFACE SYSTEM EOSINOPHIL ABSOLUTE 0.4 0.0 - 0.7 K/ul INTERFACE SYSTEM BASOPHILS ABSOLUTE 0.0 0.0 - 0.2 K/ul INTERFACE SYSTEM 03/10/2005 1:16 AM MULTIFOCAL LENS INSPECTOR Pamella Champagne MD HEMATOLOGY ORDERABLES Final Result INTERFACE SYSTEM Refer to clinic/hospital department documented in this encounter Visit Diagnoses Diagnosis Subarachnoid hemorrhage (CMS/HCC)- Primary Subarachnoid hemorrhage documented in this encounter Care Teams Photo Graphics Librarian Relationship Specialty Start Date End Date Damon Bales MD [address] [facility] [address] [place] [phone] PCP - General 04/30/05 documented as of this encounter
--- OUTSIDE RECORDS SUMMARY | 2024-09-16 16:13 | XMS_ITS | Encounter Summary ---
Author Organization [facility] Address [address] [place] [address] Care Team Providers Care Passenger Coach Driver Name Role Phone Damon Bales MD Primary Care Provider [phone] Encounter Details Date Type Department Care Team (Latest Contact Info) Description 08/12/2007 Outpatient Historical [facility] Imaging Services [address] [place] [address] Damon Bales MD [address] [address] Other Congenital Anomaly of Peripheral Vascular System Social History Tobacco Use Types Packs/Day Years Used Date Smoking Tobacco: Never Assessed Comments Unknown Sex and Gender Information Value Date Recorded Sex Assigned at Not on file Legal Sex Female 4:08 AM TECHNICAL SERVICES ASSISTANT Gender Identity Not on file Sexual Orientation Not on file documented as of this encounter Plan of Treatment Not on file documented as of this encounter Procedures Procedure Name Priority Date/Time Associated Diagnosis Comments CTA HEAD W WO CONTRAST Routine 08/18/2007 8:56 AM CDT documented in this encounter Results * CTA HEAD W WO CONTRAST (08/18/2007 8:56 AM CDT) Anatomical Region Laterality Modality Head Other 08/18/2007 8:56 AM CDT Narrative 08/18/2007 8:56 AM CDT CTA brain. Date: 08/18/2007. History: 24-year-old female - cerebrovascular malformation by history. This is imaging followup. Technique: Initial precontrast images were obtained through the brain followed by thin section helical axial volume acquisition during bolus intravenous administration of 100 mL [id number]. Workstation postprocessing was performed. Comparison: 08/30/2005. Findings: Precontrast images show complete interval resolution of vasogenic edema surrounding left frontal vascular malformation. The hyperattenuating component centrally is also significantly involuted now measuring only approximately 10 mm maximally. There does appear to be some minor surrounding gliosis. There is no mass effect. Angiographic images show patent cerebral arterial vasculature. There remains no abnormal arterial supply or venous drainage to this left frontal lesion which is most consistent with cavernous angioma. No aneurysms are detected. 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 Post hemorrhagic changes present on the prior study has completely resolved. - Dictated By: Robel Shaw D.O. Electronically Signed By: Robel Shaw D.O. Date Signed: 08/18/07 Procedure Note Robel Shaw - 08/18/2007 CTA brain. Date: 08/18/2007. History: 24-year-old female - cerebrovascular malformation by history.This is imaging followup. Technique: Initial precontrast images were obtained through the brainfollowed by thin section helical axial volume acquisition during bolus intravenous administration of 100 [id number]. Workstation postprocessing was performed. Comparison: 08/30/2005. Findings: Precontrast images show complete interval resolution ofvasogenic edema surrounding left frontal vascular malformation. The hyperattenuating component centrally isalso significantly involuted now measuring only approximately 10 mm maximally. There does appear to besome minor surrounding gliosis. There is no mass effect. Angiographic images show patent cerebral arterial vasculature. Thereremains no abnormal arterial supply or venous drainage to this left frontal lesion which is most consistentwith cavernous angioma. No aneurysms are detected. Impression: Small hyperattenuating left frontal lesion consistent withcavernous angioma. Post hemorrhagic changes present on the prior study has completely resolved. - Dictated By: Robel Shaw D.O. Electronically Signed By: Robel Shaw D.O. Date Signed: 08/18/[address] ORDERABLES Final Result documented in this encounter Visit Diagnoses Diagnosis Other congenital anomaly of peripheral vascular system documented in this encounter Care Teams Passenger Coach Driver Relationship Specialty Start Date End Date Damon Bales MD [address] [address] PCP - General 04/30/05 documented as of this encounter
--- OUTSIDE RECORDS SUMMARY | 2024-09-16 16:13 | XMS_ITS | Encounter Summary ---
Author Organization [facility] Address [address] [place] [address] Care Team Providers Care Noc Technician Name Role Phone Damon Bales MD Primary Care Provider [phone] Encounter Details Date Type Department Care Team (Latest Contact Info) Description 11/04/2005 Outpatient Historical [facility] [place] [address] [address] [place] [address] Damon Bales MD [address] [place] [address] Cerebrovascular Anomaly (Primary Dx) Social History Tobacco Use Types Packs/Day Years Used Date Smoking Tobacco: Never Assessed Comments Unknown Sex and Gender Information Value Date Recorded Sex Assigned at Not on file Legal Sex Female 4:08 AM PROJECT MANAGEMENT SPECIALIST Gender Identity Not on file Sexual Orientation Not on file documented as of this encounter Plan of Treatment Not on file documented as of this encounter Visit Diagnoses Diagnosis Cerebrovascular anomaly- Primary Congenital anomaly of cerebrovascular system documented in this encounter Care Teams Noc Technician Relationship Specialty Start Date End Date Damon Bales MD [address] [place] [address] PCP - General 04/30/05 documented as of this encounter
--- OUTSIDE RECORDS SUMMARY | 2024-09-16 16:13 | XMS_ITS | Encounter Summary ---
Author Organization [facility] Address [address] [place] [address] Care Team Providers Care Rewriter Name Role Phone Damon Bales MD Primary Care Provider [phone] Encounter Details Date Type Department Care Team (Late st Contact Info) Description 06/08/2005 Outpatient Historical [facility] [address] [facility] [address] [place] [address] Damon Bales MD [address] [employer] [address] [address] Social History Tobacco Use Types Packs/Day Years Used Date Smoking Tobacco: Never Assessed Comments Unknown Sex and Gender Information Value Date Recorded Sex Assigned at Not on file Legal Sex Female 4:08 AM ELECTROPLATER AUTOMATIC Gender Identity Not on file Sexual Orientation Not on file documented as of this encounter Plan of Treatment Not on file documented as of this encounter Visit Diagnoses Not on filedocumented in this encounter Care Teams Rewriter Relationship Specialty Start Date End Date Damon Bales MD [address] [place] [address] PCP - General 04/30/05 documented as of this encounter
--- OUTSIDE RECORDS SUMMARY | 2024-09-16 16:13 | XMS_ITS | Encounter Summary ---
Author Organization [facility] Address [address] [place] [address] Care Team Providers Care Gamma Ray Operator Name Role Phone Damon Bales MD Primary Care Provider [phone] Encounter Details Date Type Department Care Team (Late st Contact Info) Description 08/29/2005 Inpatient Historical HIS IN BED Damon Bales MD [address] [place] [address] Brain Lac NEC w/o Coma (CMS/HCC) (Primary Dx) Social History Tobacco Use Types Packs/Day Years Used Date Smoking Tobacco: Never Assessed Comments Unknown Sex and Gender Information Value Date Recorded Sex Assigned at Not on file Legal Sex Female 4:08 AM DOCUMENT SCANNER Gender Identity Not on file Sexual Orientation Not on file documented as of this encounter Plan of Treatment Not on file documented as of this encounter Procedures Procedure Name Priority Date/Time Associated Diagnosis Comments CBC WITH DIFFERENTIAL Routine 08/30/2005 3:25 AM CDT COMPREHENSIVE METABOLIC PANEL Routine 08/30/2005 3:[address] HEAD WO CONTRAST Routine 08/29/2005 1 0:40 PM CDT CTA HEAD W WO CONTRAST Routine 6 10:40 PM CDT documented in this encounter Results * (ABNORMAL) COMPREHENSIVE METABOLIC PANEL (08/30/2005 3:25 AM CDT) GLUCOSE 113(H) 70 - 110 mg/dL INTERFACE SYSTEM BUN 16 7 - 17 mg/dL INTERFACE SYSTEM CREATININE 1.4(H) 0.7 - 1.2 mg/dL INTERFACE SYSTEM SODIUM 145 136 - 145 mEq/L INTERFACE SYSTEM POTASSIUM 3.8 3.5 - 5.0 mEq/L INTERFACE SYSTEM CHLORIDE 107 95 - 110 mEq/L INTERFACE SYSTEM CO2 25 22 - 32 mmol/l INTERFACE SYSTEM ANION GAP 17 9 - 20 mEq/L INTERFACE SYSTEM OSMOLALITY, CALCULATED 299(H) 275 - 295 mOsm/Kg INTERFACE SYSTEM CALCIUM 9.8 8.4 - 10.5 mg/dL INTERFACE SYSTEM TOTAL PROTEIN 8.1 6.3 - 8.2 g/dL INTERFACE SYSTEM ALBUMIN 4.9 3.5 - 5.0 g/dL INTERFACE SYSTEM GLOBULIN (CALC) 3.2 2.4 - 3.9 g/dL INTERFACE SYSTEM ALBUMIN/GLOBULIN RATIO 1.5 1.0 - 2.3 INTERFACE SYSTEM ALKALINE PHOSPHATASE 66 25 - 100 U/L INTERFACE SYSTEM Comment: As of 05 the [facility] has changed testing methods. The new reference range is 25-100 The old referance range was 38-126 AST 27 8 - 33 U/L INTERFACE SYSTEM Comment: As of 05 the [facility] has changed testing methods. The new reference range is 8-33 The old referance range was Males 17-59 Females 14-36 ALT 18 4 - 36 IU/L INTERFACE SYSTEM Comment: As of 05 the [facility] has changed testing methods. The new reference range is 4-36 The old referance range was Males 21-72 Females 9-52 BILIRUBIN TOTAL 0.8 0.3 - 1.2 mg/dL INTERFACE SYSTEM Comment: As of 05 the [facility] has changed testing methods. The new reference range is 0.3-1.2 The old referance range was 0.2-1.4 08/30/2005 3:25 AM CDT us Damon Bales MD CHEMISTRY ORDERABLES Final Res ult INTERFACE SYSTEM Refer to clinic/hospital department * (ABNORMAL) CBC WITH DIFFERENTIAL (08/30/2005 3:25 AM CDT) WBC 12.4(H) 4.5 - 11.0 K/ul INTERFACE SYSTEM RBC 4.79 4.20 - 5.40 Mil/ul INTERFACE SYSTEM HEMOGLOBIN 14.2 12.0 - 16.0 g/dL INTERFACE SYSTEM HEMATOCRIT 43.0 36.0 - 46.0 % INTERFACE SYSTEM MCV 89.8 84.0 - 103.0 Fl INTERFACE SYSTEM MCH 29.6 27.0 - 34.0 pg INTERFACE SYSTEM MCHC 33.0 30.0 - 35.0 g/dL INTERFACE SYSTEM RDW 14.7(H) 11.0 - 14.5 % INTERFACE SYSTEM PLATELETS 237 140 - 440 K/ul INTERFACE SYSTEM MPV 10.2 8.9 - 12.8 Fl INTERFACE SYSTEM NEUTROPHILS 77.8(H) 42.2 - 75.2 % INTERFACE SYSTEM LYMPHOCYTES 13.4(L) 24.0 - 44.0 % INTERFACE SYSTEM MONOCYTES 7.8 2.0 - 10.0 % INTERFACE SYSTEM EOSINOPHILS 0.7 0.0 - 7.0 % INTERFACE SYSTEM BASOPHILS 0.3 0.0 - 1.0 % INTERFACE SYSTEM NEUTROPHIL ABSOLUTE 9.6(H) 2.0 - 8.0 K/uL INTERFACE SYSTEM LYMPHOCYTE ABSOLUTE 1.7 1.2 - 4.0 K/ul INTERFACE SYSTEM MONOCYTE ABSOLUTE 1.0(H) 0.1 - 0.6 K/ul INTERFACE SYSTEM EOSINOPHIL ABSOLUTE 0.1 0.0 - 0.7 K/ul INTERFACE SYSTEM BASOPHILS ABSOLUTE 0.0 0.0 - 0.2 K/ul INTERFACE SYSTEM 08/30/2005 3:25 AM CDT us Damon Bales MD HEMATOLOGY ORDERABLES Final Re sult INTERFACE SYSTEM Refer to clinic/hospital department * CT HEAD WO CONTRAST (08/29/2005 10:40 PM CDT) Anatomical Region Laterality Modality Head Other 08/29/2005 10:4 0 PM CDT Narrative 08/29/2005 10:[address] HEAD WITHOUT CONTRAST - 09/01/2005 HISTORY: Arteriovenous malformation. Patient has a known cavernous malformation. Noncontrast axial images were obtained through the brain and compared to previous CT from 08/30/2005. The left frontal lobe area of high density is redemonstrated and unchanged. The moderate amount of adjacent edema is also stable. Mild mass effect is noted. Ventricles are normal in size. Remainder of the brain is unremarkable. IMPRESSION: Stable exam as described above. ekp / Dictated By: Woody Koenig M.D. Electronically Signed By: Woody Koenig M.D. Date Signed: 09/02/05 Procedure Note 01/31/2009 CT HEAD WITHOUT CONTRAST - 09/01/2005 HISTORY: Arteriovenous malformation. Patient has a known cavernous malformation. Noncontrast axial images were obtained through the brain and compared toprevious CT from 08/30/2005. The left frontal lobe area of high density is redemonstrated andunchanged. The moderate amount of adjacent edema is also stable. Mild mass effect is noted. Ventricles arenormal in size. Remainder of the brain is unremarkable. IMPRESSION: Stable exam as described above. ekp / Dictated By: Woody Koenig M.D. Electronically Signed By: Woody Koenig M.D. Date Signed: 09/02/[address] ORDERABLES Final Result * CTA HEAD W WO CONTRAST (08/29/2005 10:40 PM CDT) Anatomical Region Laterality Modality Head Other 08/29/2005 10:4 0 PM CDT Addenda This result is currently undergoing an addendum. Addendum by Provider, Historical on 02/01/2009 6:28 PM DOCUMENT SCANNER This study is supplemented by three reconstructed images that demonstrate vasculature. The region of the arteriovenous malformation is not significantly prominent on the presented images. Aside from the subtle findings of the AVM, the remainder of the vasculature including the [place] of [place] appears unremarkable. I relayed the findings of the acute focal hemorrhage to the on-call staff neurosurgeon. oleg Dictated By: Murali Portillo D.O. Electronically Signed By: Murali Portillo D.O. Date Signed: 08/31/05 SDM Narrative 08/29/2005 10:40 PM CDT ATTENTION: This report replaces any previous documents on this accession number received prior to this date and time: 08/30/05 @15: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 COMPARISON STUDIES: Reference is made to a previous MRI, February, interpreted as demonstrating a cavernous angioma of the left frontal lobe extending into the white matter, this measured approximately 2.4 x 2.3 x 1.5 cm in greatest dimension. CURRENT FINDINGS: Initial noncontrast study is performed, there is high attenuation in the left frontal lobe, this corresponds to the same location as the cavernous hemangioma on the February, MRI. On the noncontrast study, there is a focus of high attenuation measuring approximately 1.7 cm in greatest dimension, surrounding this is a moderate region of low attenuation edema. This has mild mass effect upon the left lateral ventricular system. The left-sided cerebral sulci are minimally effaced, the cerebral edema extends up towards the vertex. There is no evidence of shift of midline. No hydrocephalus is appreciated. Following the IV administration of contrast there is a focus of uptake of contrast corresponding to the site of hemorrhagic in the epicenter of the left frontal cavernous hemangioma. On the presented axial images I see no other foci of abnormal enhancement. IMPRESSION: 1. There is a focus of hemorrhage in the patient's known left frontal lobe cavernous angioma 2. Surrounding the focus of hemorrhage is low attenuation edema. At the conclusion of the study I relayed the findings to Elida, the patient's ICU nurse. gb Dictated By: Murali Portillo D.O. Electronically Signed By: Murali Portillo D.O. Date Signed: 08/30/05 GRB Procedure Note 01/31/2009 ATTENTION: This report replaces any previous documents on this accession numberreceived prior to this date and time: 08/30/05 @15: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 COMPARISON STUDIES: Reference is made to a previous MRI, February, interpreted asdemonstrating a cavernous angioma of the left frontal lobe extending into the white matter, this measuredapproximately 2.4 x 2.3 x 1.5 cm in greatest dimension. CURRENT FINDINGS: Initial noncontrast study is performed, there is high attenuation in theleft frontal lobe, this corresponds to the same location as the cavernous hemangioma on theDecember, 2004 MRI. On the noncontrast study, there is a focus of high attenuation measuringapproximately 1.7 cm in greatest dimension, surrounding this is a moderate region of low attenuation edema.This has mild mass effect upon the left lateral ventricular system. The left-sided cerebral sulciare minimally effaced, the cerebral edema extends up towards the vertex. There is no evidence ofshift of midline. No hydrocephalus is appreciated. Following the IV administration of contrast there is a focus of uptake ofcontrast corresponding to the site of hemorrhagic in the epicenter of the left frontal cavernoushemangioma. On the presented axial images I see no other foci of abnormal enhancement. IMPRESSION: 1. There is a focus of hemorrhage in the patient's known left frontallobe cavernous angioma 2. Surrounding the focus of hemorrhage is low attenuation edema. At theconclusion of the study I relayed the findings to Elida, the patient's ICU nurse. gb Dictated By: Murali Portillo D.O. Electronically Signed By: Murali Portillo D.O. Date Signed: 08/30/05 GRB us Historical Provider CT ORDERABLES Edited documented in this encounter Visit Diagnoses Diagnosis Other and unspecified cerebral laceration and contusion, without mention of open intracranial wound, no loss of consciousness- Primary documented in this encounter Care Teams Gamma Ray Operator Relationship Specialty Start Date End Date Damon Bales MD [address] [address] PCP - General 04/30/05 documented as of this encounter
--- OUTSIDE RECORDS SUMMARY | 2024-09-16 16:13 | XMS_ITS | Encounter Summary ---
Author Organization [facility] Address [address] [place] [address] Care Team Providers Care Band Manager Name Role Phone Damon Bales MD Primary Care Provider [phone] Encounter Details Date Type Department Care Team (Latest Contact Info) Description 10/25/2006 Outpatient Historical [facility] Neurology [address], [address] [place] [address] Dania Churchill MD [address] [place] [address] Other Convulsions (CMS/HCC) (Primary Dx) Social History Tobacco Use Types Packs/Day Years Used Date Smoking Tobacco: Never Assessed Comments Unknown Sex and Gender Information Value Date Recorded Sex Assigned at Not on file Legal Sex Female 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
--- OUTSIDE RECORDS SUMMARY | 2024-09-16 16:13 | XMS_ITS | Clinical Summary ---
Author Organization [facility] Address [address] Attn: [place] [address] Care Team Providers Care Sales And Marketing Professional Name Role Phone Damon Bales MD Primary Care Provider [phone] Allergies No known active allergies Medications aspirin (ECOTRIN EC) 81 mg Tablet, Delayed Release (E.C.) Take 81 mg by mouth daily. 05/09/2019 Active oxybutynin (DITROPAN) 5 mg/5 mL Syrup Take by mouth 2 times daily. Active oxybutynin chloride (DITROPAN) 5 mg tablet Take 5 mg by mouth 2 times daily. Active Active Problems Problem Noted Date Diagnosed Date AVM (arteriovenous malformation) 11/29/2008 Overview (07/11/2020): Updating IMO/ICD9 Code and Description Immunizations Immunization Administration Dates Next Due Dt Dtp Dtap Vaccine 05/18/1996 Family History Medical History Relation Name Comments Healthy Daughter Healthy Father Healthy Mother Healthy Sister Relation Name Status Comments Daughter Alive Father Alive Mother Alive Sister Alive Social History Tobacco Use Types Packs/Day Years Used Date Smoking Tobacco: Never Smokeless Tobacco: Never Alcohol Use Standard Drinks/Week Comments Never 0 (1 standard drink = 0.6 oz pur e alcohol) Comments Unknown Sex and Gender Information Value Date Recorded Sex Assigned at Not on file Legal Sex Female 4:55 AM REFRIGERATION SERVICE TECHNICIAN Gender Identity Not on file Sexual Orientation Not on file Last Filed Vital Signs Vital Sign Reading Time Taken Comments Blood Pressure 122/86 05/09/2019 2:58 PM REFRIGERATION SERVICE TECHNICIAN Pulse 60 05/09/2019 2:58 PM REFRIGERATION SERVICE TECHNICIAN Temperature - - Respiratory Rate - - Oxygen Saturation - - Inhaled Oxygen Concentration - - Weight 68.9 kg (152 lb) 05/09/2019 2:58 PM REFRIGERATION SERVICE TECHNICIAN Height 154.9 cm (5' 1 ) 05/09/2019 2:58 PM REFRIGERATION SERVICE TECHNICIAN Body Mass Index 28.72 05/09/2019 2:58 PM REFRIGERATION SERVICE TECHNICIAN Plan of Treatment Health Maintenance Due Date [...] patient's age to complete this topic Insurance [place]ICAID [place] Care Teams Sales And Marketing Professional Relationship Specialty Start Date End Date Damon Bales MD [address] [address] PCP - General 04/30/05
--- OUTSIDE RECORDS SUMMARY | 2024-09-16 16:13 | XMS_ITS | Encounter Summary ---
Author Organization [facility] Address [address] [place] [address] Care Team Providers Care Replenishment Buyer Name Role Phone Damon Bales MD Primary Care Provider [phone] Encounter Details Date Type Department Care Team (Late st Contact Info) Description 10/20/2005 Inpatient Historical HIS IN BED Damon Bales MD [address] [place] [address] Facial Weakness (Primary Dx) Social History Tobacco Use Types Packs/Day Years Used Date Smoking Tobacco: Never Assessed Comments Unknown Sex and Gender Information Value Date Recorded Sex Assigned at Not on file Legal Sex Female 4:08 AM OFFICE AGENT Gender Identity Not on file Sexual Orientation Not on file documented as of this encounter Plan of Treatment Not on file documented as of this encounter Procedures Procedure Name Priority Date/Time Associated Diagnosis Comments CT HEAD WO CONTRAST Routine 10/20/2005 1 :30 AM CDT documented in this encounter Results * CT HEAD WO CONTRAST (10/20/2005 1:30 AM CDT) Anatomical Region Laterality Modality Head Other 10/20/2005 1:30 AM CDT Narrative 12/06/2008 8:32 AM CDT 10/20/05, CT SCAN OF THE HEAD WITHOUT IV CONTRAST INFUSION HISTORY: Possible AVM. Rule out bleed. Seizure. Right-sided weakness. Helical scanning of the brain was performed without the use of IV contrast material. Today's study is compared with an examination dated 09/16/05. The area of edema and mass effect in the left frontoparietal region is again identified. Once again this contains a central area of hyperdensity. The amount of mass effect appears to me to have increased slightly since the previous examination with slightly greater rightward displacement of midline structures. On the previous examination the AP dimension of the effected area with edema was 5.3 cm as compared with the current examination in which the same measurement is 6.9 cm. I see no new abnormality. IMPRESSION: Interval increase in the amount of edema in the left frontoparietal region with mildly increasing mass effect. There are no new abnormalities. ama / Dictated By: Denise Felix M.D. Electronically Signed By: Denise Felix M.D. Date Signed: 10/21/05 AMA Procedure Note Provider, Historical - 01/31/2009 10/20/05, CT SCAN OF THE HEAD WITHOUT IV CONTRAST INFUSION HISTORY: Possible AVM. Rule out bleed. Seizure. Right-sided weakness. Helical scanning of the brain was performed without the use of IV contrastmaterial. Today's study is compared with an examination dated 09/16/05. The area of edema and masseffect in the left frontoparietal region is again identified. Once again this contains a central area ofhyperdensity. The amount of mass effect appears to me to have increased slightly since the previousexamination with slightly greater rightward displacement of midline structures. On the previous examinationthe AP dimension of the effected area with edema was 5.3 cm as compared with the currentexamination in which the same measurement is 6.9 cm. I see no new abnormality. IMPRESSION: Interval increase in the amount of edema in the left frontoparietal regionwith mildly increasing mass effect. There are no new abnormalities. ama / Dictated By: Denise Felix M.D. Electronically Signed By: Denise Felix M.D. Date Signed: 10/21/05 AMA Damon B[address] MD CT ORDERABLES Final Result documented in this encounter Visit Diagnoses Diagnosis Facial weakness- Primary documented in this encounter Care Teams Replenishment Buyer Relationship Specialty Start Date End Date Damon Bales MD [address] [phone] PCP - General 04/30/05 documented as of this encounter
--- OUTSIDE RECORDS SUMMARY | 2024-09-16 16:13 | XMS_ITS | Encounter Summary ---
Author Organization [facility] Address [address] [place] [address] Care Team Providers Care Retail Operations Specialist Name Role Phone Damon Bales MD Primary Care Provider [phone] Encounter Details Date Type Department Care Team (Latest Contact Info) Description 11/04/2005 Outpatient Historical [facility] Imaging Services [address] 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 Gender Identity Not on file Sexual Orientation Not on file documented as of this encounter Plan of Treatment Not on file documented as of this encounter Procedures Procedure Name Priority Date/Time Associated Diagnosis Comments POC CREATININE Routine 11/04/2005 11:31 AM CDT documented in this encounter Results * POC CREATININE (11/04/2005 11:31 AM CDT) CREATININE POC 1.0 0.7 - 1.2 mg/dL INTERFACE SYSTEM 11/04/2005 11:3 1 AM CDT us Damon Bales MD POINT OF CARE TESTING Final Re sult INTERFACE SYSTEM Refer to clinic/hospital department documented in this encounter Visit Diagnoses Diagnosis Benign neoplasm of unspecified site- Primary documented in this encounter Care Teams Retail Operations Specialist Relationship Specialty Start Date End Date Damon Bales MD [address] [phone] PCP - General 04/30/05 documented as of this encounter
--- OUTSIDE RECORDS SUMMARY | 2024-09-16 16:13 | XMS_ITS | Encounter Summary ---
Author Organization [facility] Address [address] [place] [address] Care Team Providers Care Armature Straightener Name Role Phone Damon Bales MD Primary Care Provider [phone] Encounter Details Date Type Department Care Team (Latest Contact Info) Description 09/16/2005 Outpatient Historical [facility] [place] [address] [place] [address] Damon Bales MD [address] [place] [address] Congenital Anomaly of the Peripheral Vascular System, Unspecified Site (Primary Dx) Social History Tobacco Use Types Packs/Day Years Used Date Smoking Tobacco: Never Assessed Comments Unknown Sex and Gender Information Value Date Recorded Sex Assigned at Not on file Legal Sex Female 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
--- OUTSIDE RECORDS SUMMARY | 2024-09-16 16:13 | XMS_ITS | Encounter Summary ---
Author Organization [facility] Address [address] [place] [address] Care Team Providers Care Weekend Anchor Name Role Phone Damon Bales MD Primary Care Provider [phone] Encounter Details Date Type Department Care Team (Late st Contact Info) Description 05/16/2007 Outpatient Historical [facility] [address], [address] [place] [address] Dania Churchill MD [address] [place] [address] Social History Tobacco Use Types Packs/Day Years Used Date Smoking Tobacco: Never Assessed Comments Unknown Sex and Gender Information Value Date Recorded Sex Assigned at Not on file Legal Sex Female 4:08 AM VASCULAR MANAGER Gender Identity Not on file Sexual Orientation Not on file documented as of this encounter Progress Notes * Dania Churchill - 05/16/2007 12:00 AM CST Patient Name: Renetta Johnson DOS: 05/16/2007 : 1980 VITALS: Weight: 126.0 pounds. Pulse: 76. BP: 122/58. HISTORY OF PRESENT ILLNESS: Renetta returns for a follow-up visit today. She is currently ,6 months. She has not had any seizures since about October Occasionally when she was tired, she feltweak on the right side and had dysarthria, but this usually does not last. She reported no new symptoms. CURRENT MEDICATIONS: Trileptal 450 mg twice a day. PHYSICAL EXAMINATION: NEUROLOGIC EXAMINATION: Awake, alert and oriented x3. Speech is clear. Cranial nerves II through XII are normal. No focal weakness. Normal gait. 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 No seizures for a long time. Will continue current dose of Trileptal and follow-up in 6 months. Dania Churchill M.D. Neurology, [place] Electronically Signed by Dania Churchill M.D. 05/21/2007 17:15 , A, carol Document #: [id number] cc: ULAR MANAGER documented in this encounter Plan of Treatment Not on file documented as of this encounter Visit Diagnoses Not on filedocumented in this encounter Care Teams Weekend Anchor Relationship Specialty Start Date End Date Damon Bales MD [address] [address] PCP - General 04/30/05 documented as of this encounter
--- OUTSIDE RECORDS SUMMARY | 2024-09-16 16:13 | XMS_ITS | Encounter Summary ---
Author Organization [facility] Address [address] [place] [address] Care Team Providers Care Head Operator Sulfide Name Role Phone Damon Bales MD Primary Care Provider [phone] Encounter Details Date Type Department Care Team (Late st Contact Info) Description 04/30/2005 Outpatient Historical HIS CANCELLED ADMISSION Dmaon Bales MD [address] [place] [address] Social History Tobacco Use Types Packs/Day Years Used Date Smoking Tobacco: Never Assessed Comments Unknown Sex and Gender Information Value Date Recorded Sex Assigned at Not on file Legal Sex Female 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
--- OUTSIDE RECORDS SUMMARY | 2024-09-16 16:14 | XMS_ITS | Data Portability ---
Author Organization EUGENIA Alvin Wong [facility], [facility] Address [address] [address] Care Team Providers Care Micro Computer Data Processor Name Role Phone AMNA MAYTE Primary Care Provider Assessment Encounter Date Assessment Date Assessment LastModified by Organization Details LastModified Time 02/17/2024 02/17/2024 Patient reports she has completed the oral antibiotics and is now feeling worse. Continue sudafed OTC and Zyrtec. Not available 02/17/2024 12:26:59 Plan of Treatment Reminders Order Date Submit Date Provider Last Modified By Organization Details Last Modified Time Details Appointments None recorded. Lab rapid strep group A, throat 2024 025 [email or web address] [facility] ([facility]), [address] [place], [address], 11:59:39 lipid panel, blood 2024 025 [place] [facility], [address], [address], 09:54:05 CBC 2024 025 [facility], [address], [address], 09:04:40 CMP, serum or plasma 2024 025 [facility], [address] [facility], [facility], [place], [address], 09:41:24 Referral None recorded. Procedures None recorded. Surgeries None recorded. Imaging electrocard iogram 2024 025 [email or web address] [facility] ([facility]), [address] [facility], [place], [address], 08:32:45 Medication Orders fluticasone propionate 50 mcg/actuati on nasal spray,suspe nsion 2024 025 [facility] 15, [address], [place], [address], 11:54:44 cetirizine 10 mg tablet 2024 025 [facility] 15, [address], [place], [address], 5 11:54:44 amoxicillin 500 mg-potjenniferu m clavulanate 125 mg tablet 2024 025 [facility] 15, [address], [place], [address], 14:36:28 prednisone 20 mg tablet 2023 025 [facility] 15, [address], [place], [address], 5 15:16:53 doxycycline hyclate 100 mg tablet 2023 025 [facility] 15, [address], [place], [address], 5 16:23:21 neomycin-po lymyxin-hyd rocort 3.5 mg-10,000 unit/mL-1 % ear drops,susp 2023 024 [facility] 15, [address], [place], [address], 11:19:38 Patient TargetsNo targets recorded. Patient Instructions Encounter Date Encounter Id Patient Instructions Last Modified By Organization Details Last Modified Time 02/17/2024 [id number] Call or return for questions or concerns. Not available 02/17/2024 12:26:29 Reason for Referral None Reported. Results Created Date Observation Date Name Description Value Unit Range Abnormal Flag Note LastModifiedBy Organization Detail LastModifiedTime 04/19/1904/19/2024 CBC WBC 8.7 x10 4.0-10 .5 Not Available [facility] [address] [facility], [place], [address], 04/19/2024 09:04:40 04/19/1904/19/2024 CBC RBC 4.62 x10 3.50-5 .50 Not Available [facility] [address] [facility], [place], [address], 04/19/2024 09:04:40 04/19/1904/19/2024 CBC HGB 13.4 g/dL 12.0-1 6.0 Not Available [facility] [address] [facility], [place], [address], 04/19/2024 09:04:40 04/19/1904/19/2024 CBC HCT 39.4 % 37.0-4 7.0 Not Available [facility] [address] [facility], [place], [address], 04/19/2024 09:04:40 04/19/1904/19/2024 CBC MCV 85.2 fL 80.0-9 9.9 Not Available [facility] [address] [facility], [place], [address], 04/19/2024 09:04:40 04/19/19 25 04/19/2024 CBC MCH 29.0 pg 27.0-3 2.0 Not Available [facility] [address] [facility], [place], [address], 04/19/2024 09:04:40 04/19/19 25 04/19/2024 CBC MCHC 34.0 g/dL 32.0-3 6.0 Not Available [facility] [facility], [place], [address], 04/19/2024 09:04:40 04/19/1904/19/2024 CBC RDW 15.7 % 11.5-1 4.5 high Not Available [facility] [address] [facility], [place], [address], 04/19/2024 09:04:40 04/19/19 25 04/19/2024 CBC plt 228.2 x10 140.0- 451.0 Not Available [facility] [address] [facility] Veena [facility] 1, [place], [address], 04/19/2024 09:04:40 04/19/19 25 04/19/2024 CBC lymphocytes % 12.8 % 20.0-5 0.0 low Not Available [facility] [address] [facility] Veena [facility] 1, [place], [address], 04/19/2024 09:04:40 04/19/19 25 04/19/2024 CBC granulcytes % 76.9 % 30.0-7 0.0 high Not Available [facility] [address] [facility] Veena [facility] 1, [place], [address], 04/19/2024 09:04:40 04/19/19 25 04/19/2024 CBC monocytes % 5.2 % 2.0-16 .0 Not Available [facility] [address] [facility] [address], [place], [address], 04/19/2024 09:04:40 04/19/1904/19/2024 CBC granulcytes# 6.7 x10 Not Lara ilable [facility] [address] [facility] [address], [place], [address], 04/19/2024 09:04:40 04/19/1904/19/2024 CBC lymphocytes # 1.1 x10 Not Available [facility] [address] [facility] [address], [place], [address], 04/19/2024 09:04:40 04/19/1904/19/2024 CBC monocytes # 0.5 x10 Not Avai lable [facility] [address] [address], [place], [address], 04/19/2024 09:04:40 04/19/1904/19/2024 CMP (FEMA LE) glucose 91.0 mg/dL 60.0-9 9.0 Not Available [facility] [address] [address], [place], [address], 04/19/2024 09:41:24 04/19/1904/19/2024 CMP (FEMA LE) BUN (blood urea nitrogen) 19.0 mg/dL 10.0-2 6.0 Not Available [facility] [address] [address], [place], [address], 04/19/2024 09:41:24 04/19/1904/19/2024 CMP (FEMA LE) creatinine (serum) 1.5 mg/dL 0.4-1. 5 Not Available [facility] [address] [address], [place], [address], 04/19/2024 09:41:24 04/19/19 25 04/19/2024 CMP (FEMA LE) BUN/creatini ne ratio 12.67 ratio Not Available [facility] [address] [facility], [place], [address], 04/19/2024 09:41:24 04/19/19 25 04/19/2024 CMP (FEMA LE) eGFR calculated 40.5 Not Available [facility] [address] [facility], [place], [address], 04/19/2024 09:41:24 04/19/19 25 04/19/2024 CMP (FEMA LE) total protein 7.3 g/dL 6.0-8. 5 Not Available [facility] [address] [facility], [place], [address], 04/19/2024 09:41:24 04/19/19 25 04/19/2024 CMP (FEMA LE) total bilirubin 0.5 mg/dL 0.2-1. 3 Not Available [facility] [address] [facility], [place], [address], 04/19/2024 09:41:24 04/19/19 25 04/19/2024 CMP (FEMA LE) albumin 4.2 g/dL 3.5-5. 5 Not Available [facility] [address] [facility], [place], [address], 04/19/2024 09:41:24 04/19/19 25 04/19/2024 CMP (FEMA LE) globulin 3.1 calc Not Available [facility] [address] [facility], [place], [address], 04/19/2024 09:41:24 04/19/19 25 04/19/2024 CMP (FEMA LE) AST (SGOT) 28.0 U/L 0.0-46 .0 Not Available [facility] [address] [facility] 1, [place], [address], 04/19/2024 09:41:24 04/19/1904/19/2024 CMP (FEMA LE) altv (SGPT) 19.0 U/L 13.0-6 9.0 normal Not Available [facility] [address] [facility] [address], [place], [address], 04/19/2024 09:41:24 04/19/19 25 04/19/2024 CMP (FEMA LE) A/G ratio 1.4 ratio Not Available [facility] [address] [facility] [address], [place], [address], 04/19/2024 09:41:24 04/19/19 25 04/19/2024 CMP (FEMA LE) ALP phos 78.0 U/L 30.0-1 40.0 normal Not Available [facility] [address] [facility] 1, [place], [address], 04/19/2024 09:41:24 04/19/1904/19/2024 CMP (FEMA LE) calcium 8.6 mg/dL 8.4-10 .5 Not Available [facility] [address] [facility] 1, [place], [address], 04/19/2024 09:41:24 04/19/19 25 04/19/2024 CMP (FEMA LE) sodium 140.0 mmol/ L 136.0- 145.0 Not Available [facility] [address] [facility], [place], [address], 04/19/2024 09:41:24 04/19/19 25 04/19/2024 CMP (FEMA LE) potassium 3.9 mmol/ L 3.5-5. 1 Not Available [facility] [address] [facility] [address], [place], [address], 04/19/2024 09:41:24 04/19/19 25 04/19/2024 CMP (FEMA LE) chloride 106.0 mmol/ L 98.0-1 10.0 normal Not Available [facility] [address] [facility], [place], [address], 04/19/2024 09:41:24 04/19/19 25 04/19/2024 CMP (FEMA LE) C02 27.0 mmol/ L 22.0-3 1.0 Not Available [facility] [address] [facility] 1, [place], [address], 04/19/2024 09:41:24 04/19/19 25 04/19/2024 CMP (FEMA LE) anion gap 7.0 calc Not Available [facility] [address] [facility] 1, [place], [address], 04/19/2024 09:41:24 04/19/19 25 04/19/2024 CMP (FEMA LE) osmolality 290.9 calc Not Available [facility] [address] [facility] [address], [place], [address], 04/19/2024 09:41:24 04/19/19 25 04/19/2024 LIPID PROFI LE (FEMA LE) cholesterol 226.0 mg/dL 0.0-20 0.0 high Not Available [facility] [address] [facility], [place], [address], 04/19/2024 09:54:04 04/19/19 25 04/19/2024 LIPID PROFI LE (FEMA LE) trig 130.0 mg/dL 0.0-15 0.0 Not Available [facility] [address] [facility], [place], [address], 04/19/2024 09:54:04 02/05/04/19/2024 LIPID PROFI LE (FEMA LE) HDL - direct 74.0 mg/dL >40.0 Not Available [facility] [address] [facility], [place], [address], 04/19/2024 09:54:04 04/19/19 25 04/19/2024 LIPID PROFI LE (FEMA LE) VLDL - direct 26.0 mg/dL Not Available [facility] [address] [facility], [place], [address], 04/19/2024 09:54:04 04/19/19 25 04/19/2024 LIPID PROFI LE (FEMA LE) LDL - direct 126.0 mg/dL 0.0-13 0.0 Not Available [facility] [address] [facility], [place], [address], 04/19/2024 09:54:04 06/23/19 25 06/22/2024 rapid strep group A, throa t Strep negati ve Not Available [facility] ([facility]) [address] [place] [address], [address], 06/22/2024 11:41:04 04/18/19 25 04/19/2024 elect rocar diogr am No observ ation record ed. [email or web address] [facility] ([facility]) [address] [place] [address], [phone], 04/19/2024 18:13:51 04/19/19 25 04/18/2024 elect rocar diogr am No observ ation record ed. [email or web address] [facility] ([facility]) [address] [place] [address], [phone], 04/20/2024 10:21:31 Result Notes None recorded. Problems Name Problem SNOMED Code Status Onset Date Resolution Date Notes Provider Name and Address Organization Details Recorded Time details NOS Completed 202207/03/2024 Born w/1 kidney; 05/05/19 8:02AM by Nellie Suarez, Office Visit; Promoted ; acuity set as *; EVARISTO estrada [facility] 5 10:24:24 History of tubal ligation 902818014 Completed 202207/03/2024 Tubal Ligation ; 2007; 05/05/19 8:02AM by Nellie Suarez, Office Visit; Promoted ; acuity set as *; EVARISTO estrada [facility] 5 10:24:03 Chest pain 30915961 Completed 202002/12/2021 CHEST PAIN, MUSCULOS KELETAL - Status is Inactive ; Impressi on: Pain on both sides of the sternum near the xiphoid process. It is exacerba eduardo by bending. It has been occurrin g for about a week, she states she has had trouble with this before. She denies, nausea, vomiting , diaphore sis, anxiety, trauma, referred chest pain, or sense of impendin g doom. I will send her over some meloxica m and have her follow up with Dr Raymundo this coming week. Call or return if there is worsenin g pain, referred pain, SOB, difficul ty breathin g, anxiety, etc. She verbaliz es understa nding.; Recorded 02/13/20 8:11AM by Evaristo Villagomez RN, Annotati on/Adden dum; Promoted ; acuity set as *; Not Available [facility] 3 03:08:36 Intracra nial tumor [id number] Completed 202207/03/2024 Brain tumor; benign; 05/05/19 8:02AM by Nellie Suarez, Office Visit; Promoted ; acuity set as *; EVARISTO estrada [facility] 5 10:24:09 Disorder of upper respirat ory system 036474048 Completed 202002/12/2021 VIRAL UPPER RESPIRAT ORY TRACT INFECTIO N WITH COUGH - Status is Inactive ; Recorded 02/13/20 8:11AM by Evaristo Villagomez RN, Annotati on/Adden dum; Promoted ; acuity set as *; [facility] Available [facility] 3 03:08:37 Seizure disorder 728881715 Active 2022 Seizures ; 05/05/19 23 8:02AM by Nellie Suarez, Office Visit; Promoted ; acuity set as *; EVARISTO estrada [facility] 5 10:24:18 section Completed 202207/03/2024 C-Sect; 06/2007; 05/05/19 8:02AM by Nellie Suarez, Office Visit; Promoted ; acuity set as *; EVARISTO estrada [facility] 5 10:23:56 Seasonal allergic rhinitis 573351175 Active 2023 EVARISTO estrada [facility] 5 10:24:15 Allergic rhinitis 07402968 Active 2024 [facility] 10:23:45 Problem Notes None recorded. Procedures Surgical History Date Name Laterality Status Provider Name and Address Organization Details Recorded Time Thyroid Surgery completed [facility]/30/2023 11:09:20 Imaging Results None recorded. Procedure Notes None recorded. Medical Equipment None Reported. Allergies No known drug allergies Medications Name Sig Start Date Stop Date Status Note LastModified by Organization Details LastModified Time cetirizin e 10 mg tablet TAKE 1 TABLET BY MOUTH ONCE DAILY active Not Available Not Available No t Available benzonata te 200 mg capsule Take 1 capsule 3 times a day by oral route for 10 days. 03/30 completed Not Available Not Available Not Available meloxicam 15 mg tablet TAKE 1 TABLET BY MOUTH ONCE DAILY 11/23 completed Not Available Not Available Not Available ondansetr on HCl 4 mg tablet TAKE 1 TABLET BY MOUTH THREE TIMES DAILY NEEDED FOR 3 DAYS 03/30 completed Not Available Not Available Not Available prednison e 20 mg tablet Take 2 tablets every day by oral route in the morning for 7 days. 04/03 completed Not Available Not Available Not Available ciproflox acin 500 mg tablet TAKE 1 TABLET BY MOUTH TWICE DAILY 03/30 completed Not Available Not Available Not Available levothyro xine 100 mcg tablet TAKE 1 TABLET BY MOUTH ONCE DAILY 07/14 completed Pt is seeing a ENT in [facility] and she is not taking until after her surgery, Not Available Not Available Not Available terbinafi ne HCl 250 mg tablet Take 1 tablet every day by oral route. 07/14 completed Not Available Not Available Not Available ofloxacin 0.3 % ear drops INSTILL 4 DROPS INTO AFFECTED EARS TWICE DAILY FOR 7 DAYS 02/08 completed Not Available Not Available Not Available amoxicill in 875 mg tablet Take 1 tablet every 12 hours by oral route for 7 days. 02/20 completed Not Available Not Available Not Available tolterodi ne 2 mg tablet 2 times per day 03/30 completed Recorded 04/11/19 23 8:40AM by Nellie Suarez, Office Visit; Refill Quantity : 60; Tablet; Not Available Not Available Not Available pantopraz ole 40 mg tablet,de layed release TAKE 1 TABLET BY MOUTH ONCE DAILY 03/30 completed Not Available Not Available Not Available gabapenti n 100 mg capsule TAKE 1 CAPSULE BY MOUTH THREE TIMES DAILY 11/23 completed Not Available Not Available Not Available oxybutyni n chloride 5 mg tablet TAKE 1 TABLET BY MOUTH TWICE DAILY 03/30 completed Not Available Not Available Not Available ondansetr on 4 mg disintegr ating tablet DISSOLVE 1 TABLET IN MOUTH EVERY 8 HOURS NEEDED FOR NAUSEA AND VOMITING 03/30 completed Not Available Not Available Not Available cefdinir 300 mg capsule Take 1 capsule every 12 hours by oral route for 7 days. 05/05 completed Not Available Not Available Not Available fluticaso ne propionat e 50 mcg/actua tion nasal spray,fabian pension USE 2 SPRAY(S) IN EACH NOSTRIL TWICE DAILY FOR 14 DAYS active Not Available Not Available No t Available doxycycli ne hyclate 100 mg tablet Take 1 tablet twice a day by oral route for 10 days. 04/03 completed Not Available Not Available Not Available amoxicill in 875 mg-potass ium clavulana te 125 mg tablet Take 1 tablet every 12 hours by oral route for 7 days. 05/05 completed Not Available Not Available Not Available amoxicill in 500 mg-potass ium clavulana te 125 mg tablet TAKE 1 TABLET BY MOUTH EVERY 12 HOURS FOR 7 DAYS 04/18 completed Not Available Not Available Not Available Ventolin HFA 90 mcg/actua tion aerosol inhaler INHALE 2 PUFFS BY MOUTH NEEDED 2024 active vo JR/tn Not Available Not Available Not Avai lable oxycodone 5 mg tablet TAKE 1 TABLET BY MOUTH EVERY 4 HOURS NEEDED FOR PAIN active Not Available Not Available No t Available neomycin- polymyxin -hydrocor t 3.5 mg-10,000 unit/mL-1 % ear drops,fabian p INSTILL 4 DROPS INTO AFFECTED EAR(S) BY OTIC ROUTE 3 TIMES PER DAY x 7 days 02/20 completed Not Available Not Available Not Available Bactrim DS 800 mg-160 mg tablet Take 1 tablet every 12 hours by oral route for 7 days. 03/30 completed Not Available Not Available Not Available Ciprodex 0.3 %-0.1 % ear drops,fabian pension INSTILL 4 DROPS INTO AFFECTED EAR(S) BY OTIC ROUTE 2 TIMES PER DAY FOR 7 DAYS 02/08 completed Not Available Not Available Not Available Zyrtec 04/03 completed Not Available Not Available Not Available Toviaz 4 mg tablet,ex tended release TAKE 1 TABLET BY MOUTH ONCE DAILY 03/30 completed Not Available Not Available Not Available Vitals Date Recorded Body height Body mass index (BMI) Body weight Body temperature Heart rate Oxygen saturation Oxygen saturation in Arterial blood by Pulse oximetry Systolic And Diastolic Provider Name and Address Organization Details Last Updated DateTime 152.4 cm 26.2 kg/m2 96679.3 8 g 98.4 [degF] 107 /min 99 % 99 % 132/68 mm[Hg] Kimberly Degroot [facility] 5 15:17:33 Date Recorded Body height Body mass index (BMI) Body weight Oxygen saturation Oxygen saturation in Arterial blood by Pulse oximetry Heart rate Respiratory rate Body temperature Systolic And Diastolic Provider Name and Address Organization Details Last Updated DateTime 5 152.4 cm 25.8 kg/m2 37940.1 9 g 98 % 98 % 80 /min 18 /min 98 [degF] 136/80 mm[Hg] OLGA HUFF [facility] 5 14:05:21 Date Recorded Body height Body mass index (BMI) Body weight Oxygen saturation Oxygen saturation in Arterial blood by Pulse oximetry Heart rate Body temperature Systolic And Diastolic Provider Name and Address Organization Details Last Updated DateTime 5 152.4 cm 25 kg/m2 13230.8 2 g 99 % 99 % 71 /min 98.2 [degF] 124/68 mm[Hg] Móinca Alonso [facility] 5 11:39:09 Date Recorded Body height Body mass index (BMI) Body weight Oxygen saturation Oxygen saturation in Arterial blood by Pulse oximetry Heart rate Respiratory rate Body temperature Systolic And Diastolic Provider Name and Address Organization Details Last Updated DateTime 4 152.4 cm 25.1 kg/m2 36426.6 2 g 97 % 97 % 73 /min 16 /min 98.2 [degF] 128/74 mm[Hg] Milvia Leach [facility] 4 11:36:09 Date Recorded Body height Body mass index (BMI) Body weight Body temperature Heart rate Oxygen saturation Oxygen saturation in Arterial blood by Pulse oximetry Systolic And Diastolic Provider Name and Address Organization Details Last Updated DateTime 4 152.4 cm 24.8 kg/m2 91416.9 3 g 98.8 [degF] 106 /min 99 % 99 % 138/70 mm[Hg] Kimberly Degroot [facility] 09:31:45 Social History Question Answer Notes LastModified by Organizat ion Details LastModified Time Tobacco Smoking Status Never Smoker JULIETA estrada [facility] 03/30/2023 11:08:55 What Was The Date Of Your Most Recent Tobacco Screening? 11/27/2023 [email or web address] Information not available 11/27/2023 What Is Your Relationship Status? Single Information not available 03/30/2023 Sex: Unknown Functional Status Question Answer Note LastModified by Organizat ion Details LastModified Time Do you use any illicit or recreational drugs? No Information not available 03/30/2023 What is your level of alcohol consumption? None Information not available 03/30/2023 Are you able to care for yourself? Yes Information not available 03/30/2023 Mental Status None recorded. Family History Relationship Description Onset Age of this Age Resolved Age Notes LastModified by Organization Details LastModified Time Father Hypertensive disorder [email or web address] Not available 11/13 15:57:21 Medical History Condition Response Coronary Artery Disease N Gout N Other N Blood Diseases N Kidney Stones N Hyperthyroidism N Blood Transfusion N Breast Cancer N Depression N COPD N Lung Disease N Hypothyroidism N Developmental or Behavioral Disorders N Defects or Inherited Disease N Breast Problem N Difficulty Swallowing N Anesthesia Complications N Anxiety Disorder N Meniere's disease N Muscle, Joint, or Bone Problems N Vision or Eye Problems N Arthritis N Polyps N Infertility N Cancer N Varicosities N Stroke N Endometriosis N Bladder or Kidney Problems N High Cholesterol N Liver Disease N Headaches N Fibromyalgia N Kidney Disease N Allergies/Hayfever N Heart Problems N Ear or Hearing Problems N Hospitalizations N Thyroid Problems N GI Problems N ADD/ADHD N Skin Problems N Eating Disorder N Anemia N Constipation N Mental Illness N Ovarian Cancer N Diabetes N Bedwetting N Seizures/Epilepsy N Tuberculosis N Eczema N Diverticulitis N Abuse/Domestic Violence N Asthma N Reflux/GERD N Hepatitis N Heart Disease N Pulmonary Embolism N Chronic Ear Infections N Pre-Eclampsia N Hypertension N Chicken Pox N Autism Spectrum Disorder (ASD) N Osteoporosis N Thrombophilias N Gynecological HistoryNo gynecological history recorded. Obstetrics History GPAL:G 2 P 0 0 0 2 Type Value Living 2 Total 2 Immunizations Vaccine Type Date Status Note Provider Nam e and Address Organization Details Recorded Time Influenza, split virus, trivalent, preservative 0 completed Not Available [facility] 05/05/2023 08:59:32 COVID-19, mRNA, LNP-S, PF, 30 mcg/0.3 mL dose 2 completed TREBA NEUSCHWANDER natalie, [facility] 03/30/2023 10:57:51 DT (pediatric) 7 completed TREBA NEUSCHWANDER null, [facility] 03/30/2023 10:57:51 Tdap 7 completed TREBA NEUSCHWANDER natalie, [facility] 03/30/2023 10:57:51 Past Encounters Encounter ID Performer Location Encounter Start Date Encounter Closed Date Diagnosis/Indication Diagnosis SNOMED-CT Code Diagnosis ICD10 Code Diagnosis Note [id number] ZULMA FROST [facility] ([facility]) [address] [place] [id number] 06/22/2022 11:37:35 06/29/2022 07:52:32 Acute pharyngitis 403834753 J02.9 Nasal congestion 6785080 0 R09.81 Acute uppe r respiratory infection 65302133 J06.9 [id number] ZULMA FROST [facility] ([facility]) [address] [place] [id number] 06/29/2022 11:07:43 06/30/2022 15:00:36 Generalized abdominal pain 864170929 R10.84 Nausea and vomiting 1693 1999 R11.2 [id number] ZULMA ROMERO [facility] ([facility]) [address] [place] [id number] 07/12/2022 16:21:53 07/12/2022 17:00:12 Acute upper respiratory infection [id number] J06.9 [id number] REYNALDO KING [facility] ([facility]) [address] [place] [address] [place] [phone] 10/07/2022 11:41:40 11/02/2022 09:32:21 Acute infective otitis externa 211191440 H60.391 Start Ciprodex today. Encouraged patient to avoid swimming and submerging head in water for the next 14 days. Can use heat compresses as needed for pain relief. If not improving in 7 days, should return for further evaluation . Patient verbalizes understand ing. [id number] ROHAN FERNANDEZ NP [facility] ([facility]) [address] [place] [phone] 5 10/12/2022 11:34:50 10/12/2022 17:43:35 Acute right otitis media [id number] H66.91 Discussed to take antibiotic as prescribed until completedT ylenol or Ibuprofen for pain/disco mfortOTC allergy medicine and Flonase for drainageIn crease PO fluidsIf you develop worsening pressure or symptoms return to walk-in clinic or PCP Return to clinic if any changes, any worsening, any concerns.P atient verbalized understand ing of plan Acute sero us otitis media of right ear [id number] H65.01 Discussed to use flonase as prescribed until completedT ylenol or Ibuprofen for pain/disco mfortIncre ase PO fluidsIf you develop worsening pressure or symptoms return to walk-in clinic or PCP Return to clinic if any changes, any worsening, any concerns.P atient verbalized understand ing of plan [id number] REYNALDO KING [facility] ([facility]) [address] [place] [phone] 5 12/03/2022 11:53:05 12/03/2022 17:10:22 Middle ear effusion [id number] H74.8X2 Start daily Zyrtec and start daily Flonase. Can take tylenol/ib uprofen as needed for pain and fevers. Discussed with patient that viral coughs can last 6-8 weeks. Recommend increasing fluids and using cool mist humidifier at night. If worsening condition or no improvemen t in 7-10 days, return for further evaluation . Patient verbalizes understand ing. [id number] Rasheed Chen MD [facility] ([facility]) [address] [place] [phone] 5 01/28/2023 18:13:36 02/06/2023 18:51:39 Infection of sebaceous cyst [id number] L72.3 It appears to be an infection of a sebaceous cyst. Start antibiotic s. And then following up with PCP to discuss removal after infection resolves. [id number] REYNALDO KING [facility] ([facility]) [address] [place] [phone] 5 03/02/2023 18:05:19 03/21/2023 06:36:51 Cough [id number] R05.9 COVID-19 [id number] U07.1 COVID positive today. Patient does not qualify for Paxlovid due to length of symptoms. Can take tylenol as needed for pain. Encouraged to push fluids and quarantine until feeling better. If severe SOB or chest pain occurs, should go to ED. Patient verbalizes understand ing. Needs to quarantine 5 days from onset of symptoms per CDC guidelines . Needs to be fever free and improving on symptoms before breaking quarantine . Once breaking quarantine , should wear mask for 5 days per CDC guidelines . Patient was given a copy of her positive test result per request. [id number] JAYSHREE CHANG PA-C [facility] ([facility]) [address] [place] [address] [phone] 5 03/05/2023 09:52:14 04/06/2023 16:36:40 [id number] Mayte Raymundo MD [facility] ([facility]) [address] [place] [address] [phone] 5 03/30/2023 10:36:57 03/30/2023 14:38:29 Hypothyroidism 02597110 E03.9 Neck pain 44940973 M54.2 Pain of ear 953512153 H9 2.09 Thyroid nodule 999887266 E04.1 [id number] JAYSHREE CHANG PA-C [facility] ([facility]) [address] [place] [address] [phone] 5 04/09/2023 18:33:20 04/09/2023 18:55:08 Acute right otitis media [id number] H66.91 [id number] REYNALDO KING [facility] ([facility]) [address] [place] [address] [phone] 5 04/12/2023 11:54:08 04/12/2023 15:49:38 Acute suppurative otitis media without spontaneous rupture of ear drum 05919041 H66.001 Continue amoxicilli n as prescribed . Start the prescribed prednisone and nasal spray.F/u if symptoms worsen or concerns arise. [id number] REYNALDO KING [facility] ([facility]) [address] [place] [phone] 5 04/19/2023 11:47:16 04/19/2023 14:26:06 Recurrent acute otitis media 702140259 H65.191 Start cefdinir BID today. Encouraged tylenol/ib uprofen as needed for pain. Recommend pushing fluids and using cool mist humidifier at night. Will refer to ENT due to recurrent ear infections . If worsening condition, or no improvemen t in 5-7 days, return for further evaluation . Patient is agreeable to plan of care. [id number] Mayte Raymundo MD [facility] ([facility]) [address] [place] [address] [phone] 5 05/05/2023 08:59:14 05/05/2023 10:44:38 Onychomycosis of toenails 843693287 B35.1 [id number] Mayte Raymundo MD [facility] ([facility]) [address] [place] [address] [phone] 5 07/15/2023 11:26:59 07/15/2023 13:21:29 Neck pain 35150948 M54.2 [id number] Ani De Los Santos MD [facility] ([facility]) [address] [place] [address] [phone] 5 11/24/2023 15:48:31 11/24/2023 16:39:06 Pain of ear 979292954 H92.09 With reports of pain the drainage is likely infection. Will treat with antibiotic drops. [id number] ZULMA LUCIANO [facility] ([facility]) [address] [place] [address] [phone] 5 11/27/2023 12:32:00 11/27/2023 13:10:02 Sore throat [id number] J02.9 Strep negative. Infection of tooth 79820 8007 K04.7 Discussed use of antibiotic for full course. May take tylenol/mo austin for discomfort .Rinse mouth with mouthwash or saltwater rinses after eating/dri nking to keep the mouth clean.Call dentist today to schedule f/u appt.F/u sooner if you develop difficulty swallowing , fever, increased swelling. [id number] OSWALD OMER [facility] ([facility]) [address] [place] [address] [phone] 5 02/09/2024 15:02:30 02/09/2024 18:35:53 Acute suppurative otitis media without spontaneous rupture of ear drum 93314096 H66.001 Discussed use of antibiotic the full 7 days. May take tylenol/mo austin for discomfort .Consider using Flonase or Nasonex nasal spray daily in addition to an otc decongesta nt.Return if you develop worsening pain, drainage from the ear or concerns arise. [id number] AVA RUSS [facility] ([facility]) [address] [place] [address] [phone] 5 02/17/2024 11:26:46 02/17/2024 13:10:39 Acute otitis externa 79621320 H60.924 [id number] Timothy Neff DO [facility]) [address] [place] [address] [id number] 5 02/21/2024 09:20:50 02/21/2024 10:41:07 Acute maxillary sinusitis 90952941 J01.00 I counseled pt on diagnosis and treatment. we will start abx, steroids, pt to take OTC antihistam ine. return if not improving in 1-2 wks. [id number] OSWALD OMER [facility] ([facility]) [address] [place] [address] [phone] 5 04/03/2024 15:10:37 04/03/2024 15:47:11 Acute pansinusitis 1639464 J01.40 Discussed use of antibiotic . Take with food.May use Herson's nasal inserts and also apply on chest. Push oral fluids. Consider nasal saline rinses and otc decongesta nt.Use tylenol/mo austin for lubin. [id number] Mayte Raymundo MD [facility] ([facility]) [address] [place] [address] 04/18/2024 14:00:25 04/20/2024 08:32:45 Chest pain 14229032 R07.9 Fatigue 82752096 R53.83 [id number] Rasheed Chen MD [facility] ([facility]) [address] [place] [address] 06/22/2024 11:18:10 06/26/2024 06:18:47 Sore throat 060265280 J02.9 Strep test is negative Allergic rhinitis 021081 04 J30.9 Exam is most consistent with allergies. Recommend starting antihistam ine and Flonase Health Concerns Section Related Observation LastModified by Organization Detai ls LastModified Time None Recorded Concern Status LastModified by Organization Details LastModified Time None Recorded Advance Directives Directive None Recorded Payers Insurance Date Sequence Insurance Name Policy Number Policy Figueroa Covered Member ID Figueroa Member ID Guarantor Name 06/22/2024 1 [place] Renetta Johnson [id number] Renetta Johnson 06/22/2024 [place] [facility] [place] Renetta Johnson [id number] Renetta Johnson Notes Date Note Type Note Provider Name and Address Organization Details Recorded Time 02/17/2024 text/html Ear Pain Brief HPIReported bypatient.Location[facility] Onset/Timing:new onset Quality:aching pain Severity:getting worse; no fever Context:recent URI Alleviating factors:oral antibiotics walk in patientpatient is here today for right ear pain and sinus congestion, patient was seen on 02/09/24 and started on Amoxicillin for 7 days and it did not help ZULMA KAUR [address] [place], [phone], [facility], [place] 02/17/2024 12:31:40 02/21/2024 text/html walk in ptPt has cough, runny nose and bilateral ear pain for 2 weeks.symptoms getting worse. cough is now severe, ear pain b/l for 1 week. seen here on 02/08, started on amox, given ear gtts after seen again on 02/16. Timothy Neff, [address] [place] [address], [phone], [facility] 03/05/2024 16:29:15 04/03/2024 text/html walk in ptPt has right ear pain, runny nose and sore throat for 5 days. has been taking tylenol and sudafed. ZULMA LUCIANO [address] [place] [address], [phone], [facility] 04/03/2024 15:43:05 04/18/2024 text/html jr chest pain hpiReported bypatient.Location:s ubsternal on the left; does not radiate Quality:tightness Severity:mild; pain level 5/10 Duration:typical duration is 1 minutes Onset/Timing:started 8weeks ago; occurs weekly; multiple times per day; abrupt onset without warning; intermittent Associated Symptoms:no dyspnea; no cough; no decrease in exercise capacity; no fatigue; no nocturnal episodes; no resting episodes;dizziness I am going to have left thyroid removed in [place] but have occasional chest pain and they want be to have an ekg and be cleared before they do it. I would also like to have labs and check my iron levels Mayte Raymundo MD [address] [place] [address], [phone], [facility] 04/18/2024 18:33:31 06/22/2024 text/html walk inx5 days n donya congestin, ear pain, sore throat, LUBIN Rasheed Chen MD [address] [place] [address], [phone], [facility] 06/25/2024 11:31:52 OBGyn Episode No OBEpisode recorded.
[2024-09-16 16:31] VITALS: BP 189/102; PULSE 70; RESP 17; TEMP 36.6; O2SAT 98; BMI 26.2
--- NOTE | 2024-09-16 16:40 | CTR_ITS ---
PROCEDURE INFORMATION: Exam: CT Head Without Contrast Exam date and time: 09/16/2024 4:47 PM Age: 43 years old Clinical indication: Stroke-like symptoms; Headache and visual disturbance; Additional info: Symptoms of acute stroke TECHNIQUE: Imaging protocol: Computed tomography of the head without contrast. Radiation optimization: All CT scans at this facility use at least one of these dose optimization techniques: automated exposure control; mA and/or kV adjustment per patient size (includes targeted exams where dose is matched to clinical indication); or iterative reconstruction. Other technique: STROKE PROTOCOL was implemented. COMPARISON: MR angio head wo con [id number] 05/02/2019 11:12 AM RADIATION DOSE METRICS: Total DLP (mGy-cm): 951.88 FINDINGS: Brain: No intracranial hemorrhage. No evidence of acute territorial infarct or cerebral edema. No mass effect or midline shift. Stable gyriform hyperdensity along the left frontal lobe, previously thought to represent an underlying vascular malformation. Cerebral ventricles: No hydrocephalus. Stable mild deformity of the left lateral adjacent to above described general hyperdensity. Paranasal sinuses: Visualized paranasal sinuses are clear. Mastoid air cells: The mastoid air cells are clear. Bones: The calvarium is intact. Soft tissues: Soft tissues are unremarkable as visualized. CT/CT head thrombolytic 72790 IMPRESSION: 1. No acute intracranial findings. 2. Stable left frontal gyriform hyperdensity, previously thought to represent a vascular malformation. ASSESSMENT: ASPECTS (Mini Stroke Program Early CT Score) is 10.
--- NOTE | 2024-09-16 16:40 | ECG_ITS ---
[facility] Date: 2024-09-16 Pat Name: Renetta Johnson Department: Room: Gender: Female Java Web Engineer: : 1980 Requested By: Jasper Wright Order Number: [id number] Reading MD: MEME BRITTON Measurements Intervals Fox Rate: 74 P: 60 MO: 160 QRS: 51 QRSD: 77 T: 52 QT: 381 QTc: 423 Interpretive Statements SINUS RHYTHM POSSIBLE LEFT ATRIAL ENLARGEMENT [-0.1mV P-WAVE IN V1/V2] POSSIBLE RIGHT VENTRICULAR CONDUCTION DELAY [RSR (QR) IN V1/V2] Compared to ECG 02/08/2022 17:56:34 Sinus tachycardia no longer present Electronically Signed On 09-16-2024 20:20:21 CDT by MEME BRITTON [id number] [id number]
--- NOTE | 2024-09-16 16:41 | ED_ITS ---
HPI - Neuro Symptoms/Deficit 2 General: Chief Complaint: Neuro Symptoms/Deficit Stated Complaint: headache vison blurry Time Seen by Provider: 09/16/24 16:40 History of Present Illness: 41-year-old (G associated with vision ch anges improved the headache is still persistent episodes in the past note reviewed from previous neurology consultation from April 19, 2019. She has no focal neurologic deficits. She has had some photophobia no photophobia. No recent falls or head trauma Associated symptoms: Deny chest pain Related Data Home Medications ?Medication ?Instructions ?Recorded ?Confirmed oxybutynin chloride 5 mg tablet 5 mg PO BID 09/24/21 0 07/23/24 acetaminophen 325 mg capsule 650 mg PO QID PRN Pain 07/23/24 (Tylenol) ibuprofen 200 mg tablet (Advil) 400 mg PO Q6H PRN Pain 01/07/22 07/23/24 Previous Rx's ?Medication ?Instructions ?Recorded ondansetron 4 mg disintegrating 4 mg PO Q8H PRN nausea and 01/07/22 tablet vomiting #15 tabs pantoprazole 40 mg tablet,delayed 40 mg PO DAILY #60 t abs 02/08/22 release (Protonix) amoxicillin 875 mg-potassium 1 tab PO BID 10 days #20 tabs 07/23/24 clavulanate 125 mg tablet fluticasone propionate 50 2 spray intranasal BID #16 g joseline 07/23/24 mcg/actuation nasal spray,suspension (Flonase Allergy Relief) promethazine 25 mg tablet 25 mg PO Q6H PRN nausea and 09/16/24 vomiting #20 tabs Allergies Allergy/AdvReac Type Severity Reaction Status Date / Time No Known Allergies Allergy Verified 07/23/24 15:39 Review of Systems 2 Const: Denies: fever(s) or chills Card: Denies: chest pain Resp: Denies: dyspnea GI: Denies: abdominal pain : Denies: dysuria, urinary frequency or urinary urgency Musc: Denies: neck pain or back pain Skin/Breast: Denies: rash PFSH ED 2 PFSH: Medical History History of benign brain tumor Seizures Bladder wall thickening Surgical History Hx of tubal ligation 2007 History of partial thyroidectomy 04/09/2020 History of 2008 History of placement of ear tubes rt Family History Mother Gastric ulcer Father Hypertension Social History Smoking and tobacco/nicotine status: current every day tobacco/nicotine user Alcohol intake: former Former alcohol use details: rare Substance/Drug Use: never Lives independently: Yes Household members: significant other Marital status: Life Partner Number of children: 1 NIH stroke score 2 NIHSS: Level Of Consciousness - 1a: 0 Level Of Consciousness Questions - 1b: Both Correct Level Of Consciousness Commands - 1c: Both Correct Best Gaze - 2: Normal Visual Donovan - 3: No Visual Loss Facial Palsy - 4: N ormal Motor Arm Right - 5: No Drift Motor Arm Left - 5: No Drift Motor Leg Right - 6: No Drift Motor Leg Left - 6: No Drift Limb Ataxia - 7: A bsent Sensory - 8: Normal Best Language - 9: No Aphasia Dysarthia - 10: Normal Extinction And Inattention - 11: 0 Score: Total Score: 0 Physical Exam 2 Const: COMMON NORMALS: no acute distress GENERAL APPEARANCE: cooperative and comfortable ORIENTATION/CONSCIOUSNESS: Yes awake, Yes oriented to person, Yes oriented to place and Yes oriented to time HENMT: COMMON NORMALS: normocephalic, atraumatic and hearing grossly normal bilaterally HEAD & SCALP: normocephalic and atraumatic Resp: COMMON NORMALS: normal respiratory effort, No retractions, No use of accessory muscles and clear to auscultation bilaterally AUSCULTATION: clear to auscultation bilaterally Cardio: COMMON NORMALS: regular rate, regular rhythm and No murmurs present (Cardio) RATE: regular rate RHYTHM: regular rhythm GI: COMMON NORMALS: Soft to palpation and No hepatosplenomegaly present A USCULTATION: Yes normoactive bowel sounds PALPATION: Yes Soft to palpation, No Tenderness to palpation present (GI), No Guarding due to palpation present (GI) and Yes No hepatosplenomegaly present Extremity: COMMON NORMALS: normal to inspection, capillary refill normal, no clubbing, cyanosis or edema, no calf tenderness and no pedal edema Neuro: SENSORIUM/ORIENTATION: Yes oriented to person, Yes oriented to place and Yes oriented to time Skin: COMMON NORMALS: no rashes or lesions noted GENERAL SKIN EXAM: no rashes or lesions noted Course 2 Vital Signs: Vital signs: Vital Signs Temperature 97.9 F 09/16/24 16:31 Pulse Rate 70 09/16/24 16:31 Respiratory Rate 17 09/16/24 16:31 Blood Pressure 189/102 09/16/24 16:31 Pulse Oximetry 98 09/16/24 16:31 Oxygen Delivery Me thod Room Air 09/16/24 16:31 MDM - Neuro Symptoms/Deficit Medical Decision Making NIH score 0 her exam is normal and believe her symptoms are migraine with aura. Will treat as such medications ordered Patient improved with medications given is requesting to go home NIH remains 0 there is no focal neurologic deficits. Follow-up with your primary care doctor. Medical Records Neurology note April 19, 2019 This is a 38 year old woman presenting today as a new patient here for TIA. She was seen in ED by Dr Rachel on 02/28/19. She has visual disturbances. She presented to the [facility] emergency department 02/28/2019 complaining of right-sided visual changes of new onset. She had a previous history of stroke and aneurysm. Her NIH stroke scale score was 0 including visual donovan, which were normal. Dr. Abernathy was consulted and he recommended a baby aspirin a day and follow-up with neurology. 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 Subsequent images showed a 2.2 x 1.8 cm left parietal hyperdense focus within a mass that included vasogenic edema and midline shift. 8 months elapsed between those 2 images. She was eventually referred to Dr. Damon Bales and follow-up images did not show much change. He did do a cyberknife radiation treatment. Her mother said it was a mass in her brain that would disinegrate after two years with the treatment. They were unable to come up with the official diagnosis of the mass. She has not seen Dr. Bales for quite sometime. CTA head/neck 02/28/19 1. Normal carotid arteries. 2. Unremarkable [place]. 3. Short segment occlusion of the proximal LEFT vertebral artery with the thyrocervical trunk providing blood to the more distal vertebral artery. May be a normal variation. Short segment thrombus not excluded. 4. Variant course of the RIGHT vertebral artery. 5. Mild thyromegaly. Head CT 02/28/19 1. Hyperdense gyriform configuration in the LEFT frontal lobe. Seen on multiple prior examinations and probably representing calcification and not hemorrhage. This may be due to an area of a prior AVM treatment. 2. No acute hemorrhage or interval change. When she was 24 her mother said she had a stroke. She was flown to [facility]. She says she was unable to walk or talk. At that time her mother said she said the mass in her brain hemorrhaged leading to the stroke. The following May she started having seizures. She has seen Dr. Dania Vasquez who prescribed her Dilantin. She has been completely off Dilantin for 13 years now, and seizure free. 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 She said that she started home but called her mom who directed her to go to the ED. She was diagnosed with a TIA and her symptoms had resolved by the time she arrived. She had a headache following the episode. She rates the pain as a 7 on a 0/10 scale. She continued to have headaches and extreme fatigue for two weeks following her discharge. She describes them as a throbbing pain. She denies photophobia, phonophobia, and nausea. Her mother has a history of headaches as well as her paternal grandmother. Lab Data 09/16/24 17:02 09/16/24 17:[address] 09/16/24 16:40 IMPRESSION: 1. No acute intracranial findings. 2. Stable left frontal gyriform hyperdensity, previously thought to represent a vascular malformation. ASSESSMENT: ASPECTS ([place] Stroke Program Early CT Score) is 10. ADDENDUM: 09/16/24 6234 COMMENT: THIS REPORT CONTAINS FINDINGS THAT MAY BE CRITICAL TO PATIENT CARE. As of 5:33 PM CDT on 09/16/2024. Dav Falcon confirmed that JASPER ANDERSON has received the exam report, is aware of the critical finding, and indicated no conference call was necessary to discuss the exam findings. Laboratory Results WBC 9.21 10^3/uL (3.29-11.43) 09/16/24 17:02 RBC 4.27 10^6/uL (3.85-5.65) 09/16/24 17:02 Hgb 11.80 g/dL (11.27-16.99) 09/16/24 17:02 Hct 38.0 % (36-47) 09/16/24 17:02 MCV 89.0 fl (85-98) 09/16/24 17:02 MCH 27.6 pg (27-33) 09/16/24 17:02 MCHC 31.1 g/dL (30-55) 09/16/24 17:02 RDW 14.9 % (12.1-15.1) 09/16/24 17:02 Plt Count 239 10^3/cmm (157-399) 09/16/24 17:02 MPV 9.8 fL (7.4-10.4) 09/16/24 17:02 Neut % (Auto) 74.4 % 09/16/24 17:02 Lymph % (Auto) 15.5 % 09/16/24 17:02 Placer % (Auto) 6.0 % 09/16/24 17:02 Eos % (Auto) 3.1 % 09/16/24 17:02 Baso % (Auto) 0.8 % 09/16/24 17:02 Neut # (Auto) 6.85 10^3/uL (1.8-7.7) 09/16/24 17:02 Lymph # (Auto) 1.4 10^3/uL (0.8-4.8) 09/16/24 17:02 Placer # (Auto) 0.6 10^3/uL (0.2-0.9) 09/16/24 17:02 Eos # (Auto) 0.3 10^3/uL (0.0-0.8) 09/16/24 17:02 Baso # (Auto) 0.1 10^3/uL (0.0-0.1) 09/16/24 17:02 Nucleated RBC % (auto) 0 % 09/16/24 17:02 Nucleated RBCs # 0.0 /100WBC 09/16/24 17:02 PT 12.50 SECONDS (12.1-14.9) 09/16/24 17:02 INR 0.87 (0.8-1.2) 09/16/24 17:02 APTT 30.4 SECONDS (23.9-36.7) 09/16/24 17:02 Sodium 138 mmol/L (136-145) 09/16/24 17:02 Potassium 4.2 mmol/L (3.5-5.1) 09/16/24 17:02 Chloride 105 mmol/L (98-107) 09/16/24 17:02 Carbon Dioxide 24 mmol/L (22-29) 09/16/24 17:02 Anion Gap 13.2 (5-19) 09/16/24 17:02 BUN 17 mg/dL (6-20) 09/16/24 17:02 Creatinine 1.4 mg/dL (0.5-0.9) H 09/16/24 17:02 GFR Calculation 41.2 mL/min (90-130) L 09/16/24 17:02 Glucose 86 mg/dL (65-115) 09/16/24 17:02 POC Glucose 108 mg/dL (70-110) 09/16/24 16:46 Calculated Osmolality 287 mOsm/kg (285-295) 09/16/24 17:02 Calcium 8.4 mg/dL (8.5-10.5) L 09/16/24 17:02 Total Bilirubin 0.2 mg/dL (0.15-1.2) 09/16/24 17:02 AST 16 U/L (0-32) 09/16/24 17:02 ALT 13 U/L (0-33) 09/16/24 17:02 Alkaline Phosphatase 75 U/L (35-105) 09/16/24 17:02 Total Protein 6.6 g/dL (6.6-8.7) 09/16/24 17:02 Albumin 3.8 g/dL (3.5-5.2) 09/16/24 17:02 Globulin 2.8 g/dL (1.3-4.6) 09/16/24 17:02 Urine Color Yellow (Yellow) 09/16/24 17:29 Urine Appearance Clear (CLEAR) 09/16/24 17:29 Urine pH 7.0 (5-7) 09/16/24 17: Ur Specific [place] 1.014 (1.005-1.030) 09/16/24 17:29 Urine Protein 2+ (Negative) A 09/16/24 17:29 Urine Glucose (UA) Negative (Normal) 09/16/24 17: Urine Ketones Negative (Negative) 09/16/24 17: Urine Blood Negative (Negative) 09/16/24 17: Urine Nitrate Negative (Negative) 09/16/24 17: Urine Bilirubin Negative (Negative) 09/16/24 17:29 Urine Urobilinogen 0.2 mg/dL (Negative) 09/16/24 17:29 Ur Leukocyte Esterase Negative (Negative) 09/16/24 17:29 Urine RBC 0-2 /hpf (0-2) 09/16/24 17:29 Urine WBC 0-5 /hpf (0-5) 09/16/24 17:29 Ur Squamous Epith Cells 0-5 /hpf (0-5) 09/16/24 17:29 Amorphous Sediment Not Reportable 09/16/24 17:29 Urine Bacteria None seen /hpf (NONE) 09/16/24 17:29 Hyaline Casts 0-4 /lpf H 09/16/24 17:29 Urine Opiates Screen Negative ng/mL (Negative) 09/16/24 17:29 Ur Barbiturates Screen Negative ng/mL (Negative) 09/16/24 17:29 Ur Phencyclidine Scrn Negative ng/mL (Negative) 09/16/24 17:29 Ur Amphetamines Screen Negative ng/mL (Negative) 09/16/24 17:29 U Benzodiazepines Scrn Negative ng/mL (Negative) 09/16/24 17:29 Urine Cocaine Screen Negative ng/mL (Negative) 09/16/24 17:29 U Marijuana (THC) Screen Negative ng/mL (Negative) 09/16/24 17:29 All radiology interpretation(s) finalized by discharge Discharge Plan Discharge Patient Disposition: Home Clinical Impression: Migraine with aura Condition: Stable Prescriptions: New promethazine 25 mg tablet 25 mg PO Q6H PRN (Reason: nausea and vomiting) Qty: 20 0RF No Action fluticasone propionate [Flonase Allergy Relief] 50 mcg/actuation spray,suspension 2 spray intranasal BID Qty: 16 0RF Rx Instructions: administer into each nostril amoxicillin-pot clavulanate 875-125 mg tablet 1 tab PO BID 10 Days Qty: 20 0RF oxybutynin chloride 5 mg tablet 5 mg PO BID Advil 200 mg Tablet 400 mg PO Q6H PRN (Reason: Pain) Tylenol 325 mg Capsule 650 mg PO QID PRN (Reason: Pain) ondansetron 4 mg tablet,disintegrating 4 mg PO Q8H PRN (Reason: nausea and vomiting) Qty: 15 0RF Protonix 40 mg tablet,delayed release (DR/EC) 40 mg PO DAILY Qty: 60 0RF Discharge Orders: Discharge ED (Routine); Ordered 09/16/24 Ordered By: Jasper Anderson Referrals: Abdias Raymundo MD [Primary Care Provider, Family Practice] Discharge Diet: Usual diet Discharge Activity: Increase activity as tolerated Patient Instructions: Opioid Safety, Pain Management, Patient Portal & Kim Instructions Activity Restrictions/Additional Instructions: Thank you for choosing [facility] for your healthcare needs today. It is very important that you follow up as instructed or that you return to the Emergency Department should you have concerns or if your condition changes or worsens in any way. You were seen with complaint of headache and vision changes. Exam for stroke was negative CT of your head was negative. You did improve slightly with medications given. Will be discharged home you can use promethazine along with Tylenol or ibuprofen for headache if you have recurrence if it becomes unmanageable return to the emergency room. Print Language: [place] Coding Level of Care Code ED Apprentice Jockey for Brice Vargas
[2024-09-16 17:07] LABS: Hematocrit 38.0 % (36-47); Hemoglobin 11.80 g/dL (11.27-16.99); Mean Corpuscular HGB Conc 31.1 g/dL (30-55); Mean Corpuscular Hemoglobin 27.6 pg (27-33); Mean Corpuscular Volume 89.0 fl (85-98); Nucleated Red Blood Cells % 0 %; Platelet Count 239 10^3/cmm (157-399); Red Blood Count 4.27 10^6/uL (3.85-5.65); White Blood Count 9.21 10^3/uL (3.29-11.43)
[2024-09-16 17:20] LABS: INR 0.87 (0.8-1.2); Prothrombin Time 12.50 SECONDS (12.1-14.9)
[2024-09-16 17:21] LABS: Partial Thromboplastin Time 30.4 SECONDS (23.9-36.7)
[2024-09-16 17:29] LABS: Alanine Aminotransferase 13 U/L (0-33); Albumin Level 3.8 g/dL (3.5-5.2); Alkaline Phosphatase 75 U/L (35-105); Anion Gap 13.2 (5-19); Aspartate Amino Transferase 16 U/L (0-32); Blood Urea Nitrogen 17 mg/dL (6-20); Calcium 8.4 mg/dL (8.5-10.5); Carbon Dioxide 24 mmol/L (22-29); Chloride 105 mmol/L (98-107); Creatinine Clr Calc Pharmacy 48.7297; Globulin 2.8 g/dL (1.3-4.6); Glucose 86 mg/dL (65-115); Osmolality Calculated 287 mOsm/kg (285-295); Potassium 4.2 mmol/L (3.5-5.1); Sodium 138 mmol/L (136-145); Total Protein 6.6 g/dL (6.6-8.7)
[2024-09-16 17:30] VITALS: BP 199/116; PULSE 69; O2SAT 100
[2024-09-16 17:44] LABS: Glucose Urine UA Negative (Normal); Nitrate Urine Negative (Negative); Specific Gravity, Urine 1.014 (1.005-1.030)
[2024-09-16 17:49] LABS: Add Urine Microscopic? YES
[2024-09-16 17:50] LABS: PCP Screen Urine Negative (Negative)
[2024-09-16 18:00] VITALS: BP 189/120; PULSE 75; O2SAT 98
[2024-09-16] MEDS: diphenhydrAMINE 50 mg/mL SDV 1mL IVP (18:10)
[2024-09-16] MEDS: labetalol 5 mg/mL SDV 20mL 20 MG IVP (18:28)
[2024-09-16 18:32] VITALS: BP 194/114; PULSE 103; O2SAT 95
[2024-09-16 18:50] VITALS: BP 190/115; PULSE 89; O2SAT 100
== END 2024-09-16 18:50 | disposition home or self-care (01) ==
PROVIDERS: Emergency Provider Family Medicine; PCP Family Medicine
DX: G43.109 Migraine with aura, not intractable, without status migrainosus (principal); Z72.0 Tobacco use
CPT/HCPCS: 36415; 36416; 70450; 80053; 80306; 81001; 82962; 85025; 85610; 85730; 93005; 96374; 96375; 99285; J0780; J1200; J1885; J3490; J7030; J9999